=== PATIENT | male | born 1990 | race Caucasian/White ===

== ENCOUNTER 2017-03-27 13:10 | Inpatient (IN) | payer OTHER ==
--- NOTE | 2017-03-27 17:12 | HP ---
Screened but not Admitted - Documentation of Visit Screened but not Admitted: Yes Patient Does Not Meet Criteria for Admission: Yes Alternative Treatment/Care Home Info Provided: Yes Additional Information/Explanation: referred to gayle gonzalez
[2017-03-27 21:20] VITALS: BMI 27.3
--- NOTE | 2017-03-27 21:23 | HP ---
COWS - Scale Resting Pulse: 0= DC 80 or Below Sweatin=Flushed/Facial Moisture Restless Observation: 1= Difficult to Sit Still Pupil Size: 1= Pupils >than Normal Bone or Joint Aches: 2= Severe Diffuse Aches Runny Nose/ Eye Tearin= Nasal Congestion GI Upset > 30mins: 3= Vomiting/Diarrhea Tremor Observation: 1= Tremor [place], Not Seen Yawning Observation: 1= 1-2x During Session Anxiety or Irritability: 1=Feels Anxious/Irritable Goose Flesh Skin: 3=Piloerection COWS Score: 16 CIWA Score - CIWA Score Nausea/Vomitin-Mild Nausea/No Vomiting Muscle Tremors: 3 Anxiety: 3 Agitation: 2 Paroxysmal Sweats: 2 Orientation: 0-Oriented Tacttile Disturbances: 0-None Auditory Disturbances: 0-None Visual Disturbances: 1-Very Mild Sensitivity Headache: 1-Very Mild CIWA-Ar Total Score: 13 Admission ROS BHS - HPI Chief Complaint: WITHDRAWAL SYMPTOMS Allergies/Adverse Reactions: Allergies Allergy/AdvReac Type Severity Reaction Status Date / Time No Known Allergies Allergy Verified 08/06/16 12:36 History of Present Illness: 26 Y.O. MAN WITH AN EXTENSIVE HISTORY OF HEROIN AND XANAX DEPENDENCE IS HERE SEEKING DETOX. HE COMPLETED DETOX HERE IN 08/03 AND WENT TO REHAB AT ANOTHER FACILITY BUT REPORTS HE WAS ADMINISTRATIVELY DISCHARGED. HE STATES HAVING A TWO YEAR PERIOD OF BEING CLEAN. Exam Limitations: No Limitations - Ebola screening Have you traveled outside of the country in the last 21 days: No Have you had contact with anyone from an Ebola affected area: No Have you been sick,other than usual withdrawal symptoms: No Do you have a fever: No - Review of Systems Constitutional: Chills, Loss of Appetite, Changes in sleep EENT: reports: Nose Congestion Respiratory: reports: Cough Cardiac: reports: No Symptoms Reported GI: reports: Diarrhea, Poor Appetite, Vomiting : reports: Other (HESITANCY) Musculoskeletal: reports: Back Pain, Joint Pain, Neck Pain Integumentary: reports: Other (B/L TRACK [place]) Neuro: reports: Tremors Endocrine: reports: No Symptoms Reported Hematology: reports: No Symptoms Reported Psychiatric: reports: Orientated x3, Depressed, other (INSOMNIA) Other Systems: Reviewed and Negative Patient History - Patient Medical History Hx Anemia: No Hx Asthma: No Hx Chronic Obstructive Pulmonary Disease (COPD): No Hx Cancer: No Hx Cardiac Disorders: No Hx Congestive Heart Failure: No Hx Hypertension: No Hx Hypercholesterolemia: No Hx Pacemaker: No HX Cerebrovascular Accident: No Hx Seizures: No Hx Diabetes: No Hx Gastrointestinal Disorders: No Hx Liver Disease: No Hx Genitourinary Disorders: No Hx Sexually Transmitted Disorders: No Hx Renal Disease (ESRD): No Hx Thyroid Disease: No Hx Human Immunodeficiency Virus (HIV): No (negative) Hx Hepatitis C: No Hx Depression: Yes (& INSOMNIA ) Hx Suicide Attempt: No Hx Bipolar Disorder: No Hx Schizophrenia: No - Patient Surgical History Past Surgical History: No Hx Neurologic Surgery: No Hx Cataract Extraction: No Hx Cardiac Surgery: No Hx Lung Surgery: No Hx Breast Surgery: No Hx Breast Biopsy: No Hx Abdominal Surgery: No Hx Appendectomy: No Hx Cholecystectomy: No Hx Genitourinary Surgery: No Hx Section: No Hx Orthopedic Surgery: No Anesthesia Reaction: No - PPD History Previous Implant?: Yes Documented Results: Negative w/o proof PPD to be Administered?: Yes - Reproductive History Patient is a Female of Child Bearing Age (11 -55 yrs old): No - Smoking Cessation Smoking history: Current every day smoker Have you smoked in the past 12 months: Yes Aproximately how many cigarettes per day: 20 Hx Chewing Tobacco Use: No Initiated information on smoking cessation: Yes 'Breaking Loose' booklet given: 03/27/17 - Substance & Tx. History Hx Alcohol Use: Yes Hx Substance Use: Yes Substance Use Type: Heroin, Tranquilizers Hx Substance Use Treatment: Yes (DETOX AT [facility] (07/2016) + REHAB AT [facility] (2016) ) - Substances Abused Heroin Route: Injection Frequency: Daily Amount used: 1 BUNDLE Age of first use: 20 Date of Last Use: 03/27/17 Alprazolam (Xanax) Route: Oral Frequency: 3-6 times per week Amount used: 2-3 STICKS Age of first use: 16 Date of Last Use: 03/25/17 Family Disease History - Family Disease History Family Disease History: Diabetes: Grandparent, Heart Disease: Grandparent, CA: Grandparent, Respiratory: Mother Admission Physical Exam BHS - Vital Signs Vital Signs: Vital Signs - 24 hr 03/27/17 21:18 Temperature 95.8 F L Pulse Rate 80 Respiratory 18 Rate Blood Pressure 104/64 - Physical General Appearance: Yes: No Apparent Distress, Nourished, Appropriately Dressed , Anxious HEENTM: Yes: Normal ENT Inspection, Normocephalic, Normal Voice, SCOTTIE Respiratory: Yes: Chest Non-Tender, Lungs Clear, Normal Breath Sounds, No Respiratory Distress, No Accessory Muscle Use Neck: Yes: No masses,lesions,Nodules, Trachea in good position Cardiology: Yes: Regular Rhythm, Regular Rate Abdominal: Yes: Flat, Soft Genitourinary: Yes: Hesitency Back: Yes: Normal Inspection Musculoskeletal: Yes: Gait Steady, Pelvis Stable Extremities: Yes: Normal Inspection, Normal Range of Motion, Non-Tender, Tremors Neurological: Yes: parachute repairer II-XII NML intact, Fully Oriented, Alert, Normal Mood/ Affect, Normal Response Integumentary: Yes: Track [place] Lymphatic: Yes: Within Normal Limits - Diagnostic (1) Opioid dependence with withdrawal Current Visit: Yes Status: Chronic (2) Sedative, hypnotic or anxiolytic dependence with withdrawal, uncomplicated Current Visit: Yes Status: Chronic (3) Nicotine dependence Current Visit: Yes Status: Chronic Qualifiers: Nicotine product type: cigarettes Substance use status: uncomplicated Qualified Code(s): F17.210 - Nicotine dependence, cigarettes, uncomplicated Cleared for Admission [facility] - Detox or Rehab [facility] Level of Care: Medically Managed Detox Regimen/Protocol: Methadone/Valium S Breath Alcohol Content Breath Alcohol Content: 0 Urine Drug Screen - Results Drug Screen Negative: No Urine Drug Screen Results: THC-Marijuana, ALYCIA-Cocaine, OPI-Opiates, TCA- Tricyclic Antidepress
[2017-03-27] MEDS ORDERED: NICOTINE POLACRILEX 2 MG GUM BUC PRN (21:42)
[2017-03-27] MEDS ORDERED: MENTHOL/PHENOL 1 EACH UD MM PRN (21:42)
[2017-03-27] MEDS ORDERED: LOPERAMIDE HCL 2 MG CAPSULE PO PRN (21:42)
[2017-03-27] MEDS ORDERED: IBUPROFEN 400 MG TABLET (FP) PO PRN (21:42)
[2017-03-27] MEDS ORDERED: hydrOXYzine PAMOATE 50 MG CAPSULE (FP) PO PRN (21:42)
[2017-03-27] MEDS ORDERED: ACETAMINOPHEN 325 MG TABLET (FP) PO PRN (21:42)
[2017-03-27] MEDS ORDERED: diazePAM 5 MG TABLET PO PRN (21:42)
[2017-03-27] MEDS ORDERED: METHADONE HCL 10 MG TABLET (FOR DETOX USE ONLY) PO ONE ×4 (21:42→23:52)
[2017-03-27] MEDS ORDERED: diazePAM 5 MG TABLET PO ONE (21:42)
[2017-03-27] MEDS ORDERED: MAGNESIUM CITRATE 300 ML BOTTLE PO PRN (21:42)
[2017-03-27] MEDS ORDERED: guaiFENesin/D-METHORPHAN HB 10 ML UNIT-DOSE CUPS PO PRN (21:42)
[2017-03-27] MEDS ORDERED: MAGNESIUM HYDROX 2400MG/30ML ORAL SUSPENSION 30 ML CUP PO PRN (21:42)
[2017-03-27] MEDS ORDERED: P-EPHED 60MG/TRIPROLIDI 2.5MG TABLET PO PRN (21:42)
[2017-03-27] MEDS ORDERED: diazePAM 5 MG TABLET PO SCH (22:00)
[2017-03-27 22:52] LABS: URINE APPEARANCE CLEAR; URINE BILIRUBIN NEGATIVE (NEGATIVE); URINE BLOOD NEGATIVE (NEGATIVE); URINE GLUCOSE (UA) NEGATIVE (NEGATIVE); URINE KETONE TRACE (NEGATIVE); URINE LEUK ESTERASE NEGATIVE (NEGATIVE); URINE NITRITE NEGATIVE (NEGATIVE); URINE UROBILINOGEN NEGATIVE E.U./dl (0.2-1.0)
[2017-03-27 22:54] LABS: URINE COLOR YELLOW; URINE PROTEIN 1+ (NEGATIVE)
[2017-03-27 23:11] LABS: CALCIUM OXALATE CRYSTALS FEW /hpf (NONE SEEN); URINE HYALINE CAST 2 /lpf; URINE MUCUS MANY; URINE RBC 2 /hpf (0-3); URINE WBC 2 /hpf (3-5)
[2017-03-27] MEDS: THIAMINE HCL 100 MG TABLET (FP) PO SCH (23:52)
[2017-03-28] MEDS: diazePAM 5 MG TABLET PO PRN ×5 (00:04→23:25)
[2017-03-28] MEDS: MAG HYDROX/AL HYDROX/SIMETH 30 ML UNIT-DOSE CUP PO PRN (06:13)
[2017-03-28] MEDS ORDERED: METHADONE HCL 10 MG TABLET (FOR DETOX USE ONLY) PO ONE (10:00)
[2017-03-28] MEDS ORDERED: METHADONE HCL 10 MG TABLET (FOR DETOX USE ONLY) PO SCH (10:00)
[2017-03-28 10:05] LABS: MCH 29.5 pg (25.7-33.7); MCHC 33.5 g/dl (32.0-35.9); MEAN PLT VOLUME 8.6 fl (7.5-11.1); PLATELET COUNT 131 K/MM3 (134-434); RDW 14.2 % (11.9-15.9); WHITE BLOOD COUNT 5.6 K/mm3 (4.0-10.0)
[2017-03-28 10:09] LABS: ALBUMIN 3.5 g/dl (3.4-5.0); ALK PHOS 76 U/L (45-117); ANION GAP 7 (8-16); BILIRUBIN,TOTAL 0.5 mg/dL (0.2-1.0); CALCIUM 8.4 mg/dL (8.5-10.1); CO2 31 mmol/L (21-32); CREATININE 1.1 mg/dL (0.7-1.3); GLUCOSE,RANDOM 54 mg/dL (74-106); SGOT/AST 16 U/L (15-37); SGPT/ALT 13 U/L (12-78); TOT PROT 6.4 g/dl (6.4-8.2)
[2017-03-28] MEDS: NICOTINE 21 MG/24 HOURS TOPICAL PATCH TD SCH (10:47)
[2017-03-28] MEDS: PRENATAL VITAMINS W/ FOLIC ACID TABLET (FP) PO SCH (10:47)
--- NOTE | 2017-03-28 13:55 | CONSULT ---
[facility] Psychiatric Consult - Data Date of interview: 03/28/17 Admission source: [facility] Identifying data: Readmission to [facility] for this 26 y/o male seeking detox treatment for heroin and benzodiazepine dependence.Patient is single without children,domiciled,unemployed and supported on food stamps. Substance Abuse History: - Smoking Cessation. Smoking history: Current every day smoker. Have you smoked in the past 12 months: Yes. Aproximately how many cigarettes per day: 20. Hx Chewing Tobacco Use: No. Initiated information on smoking cessation: Yes. 'Breaking Loose' booklet given: 03/27/17. - Substance & Tx. History. Hx Alcohol Use: Yes. Hx Substance Use: Yes. Substance Use Type : Heroin, Tranquilizers. Hx Substance Use Treatment: Yes (DETOX AT [facility] (2015) + REHAB AT [facility] (12/2016) ). - Substances Abused. Heroin. Route: Injection. Frequency: Daily. Amount used: 1 BUNDLE. Age of first use: 20. Date of Last Use: 03/27/17. Alprazolam (Xanax). Route: Oral. Frequency: 3- 6 times per week. Amount used: 2-3 STICKS. Age of first use: 16. Date of Last Use: 03/25/17. Confirmed by patient. Medical History: No report of medical problems. Psychiatric History: Patient denies. Physical/Sexual Abuse/Trauma History: Patient denies. Additional Comment: Urine Drug Screen Results: THC-Marijuana, ALYCIA-Cocaine, OPI- Opiates, TCA-Tricyclic Antidepressant.Noted. Mental Status Exam - Mental Status Exam Alert and Oriented to: Time, Place, Person Cognitive Function: Good Patient Appearance: Unkempt, Disheveled Mood: Nervous, Withdrawn, Anxious Affect: Mood Congruent Patient Behavior: Sedated (light sedation), Fatigued, Cooperative (superficially ) Speech Pattern: Delayed, Slurred Voice Loudness: Moderately Soft/Quiet Thought Process: Goal Oriented (conversant) Hallucinations: Denies Suicidal Ideation: Denies Homicidal Ideation: Denies Insight/Judgement: Poor Sleep: Well Appetite: Good Muscle strength/Tone: Normal Gait/Station: Normal Psychiatric Findings - Problem List ([place] 1, 2,3) (1) Opioid dependence with withdrawal Current Visit: Yes Status: Acute (2) Sedative, hypnotic or anxiolytic dependence with withdrawal, uncomplicated Current Visit: Yes Status: Acute (3) Alcohol dependence with uncomplicated withdrawal Current Visit: Yes Status: Acute (4) Cocaine dependence, uncomplicated Current Visit: Yes Status: Acute (5) Cannabis dependence Current Visit: Yes Status: Acute (6) Nicotine dependence Current Visit: Yes Status: Chronic Qualifiers: Nicotine product type: cigarettes Substance use status: uncomplicated Qualified Code(s): F17.210 - Nicotine dependence, cigarettes, uncomplicated (7) Drug-induced mood disorder Current Visit: No Status: Suspected - Initial Treatment Plan Initial Treatment Plan: Psychoeducation.Detoxification.Detoxification.
--- NOTE | 2017-03-28 15:45 | EKG ---
Test Reason : Blood Pressure : / mmHG Vent. Rate : 068 BPM Atrial Rate : 068 BPM P-R Int : 144 ms QRS Dur : 094 ms QT Int : 384 ms P-R-T Axes : 053 078 068 degrees QTc Int : 408 ms NORMAL SINUS RHYTHM NORMAL ECG NO PREVIOUS ECGS AVAILABLE Confirmed by MELANI YANG, SUE ([id number]) on 03/28/2017 3:45:13 PM Referred By: Confirmed By:SUE POLO MD
--- NOTE | 2017-03-28 19:16 | PN ---
[facility] CIWA - CIWA Score Nausea/Vomitin-No Nausea/No Vomiting Muscle Tremors: 4-Moderate,w/Arms Extend Anxiety: 4-Mod. Anxious/Guarded Agitation: 2 Paroxysmal Sweats: 2 Orientation: 0-Oriented Tacttile Disturbances: 1-Very Mild Itch/Numbness Auditory Disturbances: 1-Very Mild Visual Disturbances: 3-Moderate Sensitivity Headache: 0-None Present CIWA-Ar Total Score: 17 [facility] Progress Note (SOAP) Subjective: Tremors, Sweating, Body Aches, Diarrhea. Objective: PT. A & O X 3, OBSERVED AMBULATING ON UNIT. NO ACUTE DISTRESS. 03/28/17 19:13 Vital Signs Temperature 97.2 F L 03/28/17 17:41 Pulse Rate 84 03/28/17 17:41 Respiratory Rate 18 03/28/17 17:41 Blood Pressure 106/62 03/28/17 17:41 O2 Sat by Pulse Oximetry (%) Laboratory Tests 03/27/17 03/28/17 03/28/17 22:20 08:00 08:00 WBC 5.6 D RBC 4.47 Hgb 13.2 Hct 39.4 MCV 88.0 MCHC 33.5 RDW 14.2 Plt Count 131 L MPV 8.6 Sodium 141 Potassium 3.8 Chloride 103 Carbon Dioxide 31 D Anion Gap 7 L BUN 8 D Creatinine 1.1 Creat Clearance w eGFR > 60 Random Glucose 54 L D Calcium 8.4 L Total Bilirubin 0.5 AST 16 D ALT 13 D Alkaline Phosphatase 76 D Total Protein 6.4 D Albumin 3.5 Urine Color Yellow Urine Appearance Clear Urine pH 5.0 Ur Specific [place] >= 1.030 H Urine Protein 1+ H Urine Glucose (UA) Negative Urine Ketones Trace H Urine Blood Negative Urine Nitrite Negative Urine Bilirubin Negative Urine Urobilinogen Negative Ur Leukocyte Esterase Negative Urine RBC 2 Urine WBC 2 Ur Epithelial Cells Rare Calcium Oxalate Crystal Few Hyaline Casts 2 Urine Mucus Many RPR Titer 03/28/17 08:00 WBC RBC Hgb Hct MCV MCHC RDW Plt Count MPV Sodium Potassium Chloride Carbon Dioxide Anion Gap BUN Creatinine Creat Clearance w eGFR Random Glucose Calcium Total Bilirubin AST ALT Alkaline Phosphatase Total Protein Albumin Urine Color Urine Appearance Urine pH Ur Specific [place] Urine Protein Urine Glucose (UA) Urine Ketones Urine Blood Urine Nitrite Urine Bilirubin Urine Urobilinogen Ur Leukocyte Esterase Urine RBC Urine WBC Ur Epithelial Cells Calcium Oxalate Crystal Hyaline Casts Urine Mucus RPR Titer Nonreactive LABS NOTED. Assessment: 03/28/17 19:15 WITHDRAWAL SYMPTOMS. Plan: CONTINUE DETOX.
[2017-03-28] MEDS: THIAMINE HCL 100 MG TABLET (FP) PO SCH (22:14)
[2017-03-28] MEDS: diphenhydrAMINE HCL 50 MG CAPSULE PO PRN (22:14)
[2017-03-29] MEDS: diazePAM 5 MG TABLET PO PRN ×5 (03:31→22:11)
[2017-03-29] MEDS ORDERED: METHADONE HCL 5 MG TABLET (FOR DETOX USE ONLY) PO SCH (10:00)
[2017-03-29] MEDS ORDERED: METHADONE HCL 5 MG TABLET (FOR DETOX USE ONLY) PO ONE (10:00)
[2017-03-29] MEDS ORDERED: diazePAM 5 MG TABLET PO SCH (10:00)
[2017-03-29] MEDS: NICOTINE 21 MG/24 HOURS TOPICAL PATCH TD SCH (10:14)
[2017-03-29] MEDS: PRENATAL VITAMINS W/ FOLIC ACID TABLET (FP) PO SCH (10:14)
--- NOTE | 2017-03-29 15:16 | PN ---
S COWS - Scale Resting Pulse: 1= AL 81-100 Sweatin= Chills/Flushing Restless Observation: 3= Extraneous Movement Pupil Size: 0= Normal to Room Light Bone or Joint Aches: 2= Severe Diffuse Aches Runny Nose/ Eye Tearin= Runny Nose/Eyes GI Upset > 30mins: 2= Nausea/Diarrhea Tremor Observation of Outstretched Hands: 2= Slight Tremor Visible Yawning Observation: 1= 1-2x During Session Anxiety or Irritability: 2=Irritable/Anxious Goose Flesh Skin: 0=Smooth Skin COWS Score: 16 S Progress Note (SOAP) Subjective: Interrupted sleep, sweating, anxious Objective: 03/29/17 15:13 Last Vital Signs Temp Pulse Resp BP Pulse Ox 97.7 F 88 20 128/79 03/29/17 13:15 03/29/17 13:15 03/29/17 13:15 03/29/17 13:15 Laboratory Tests 03/27/17 03/28/17 03/28/17 22:20 08:00 08:00 WBC 5.6 D RBC 4.47 Hgb 13.2 Hct 39.4 MCV 88.0 MCHC 33.5 RDW 14.2 Plt Count 131 L MPV 8.6 Sodium 141 Potassium 3.8 Chloride 103 Carbon Dioxide 31 D Anion Gap 7 L BUN 8 D Creatinine 1.1 Creat Clearance w eGFR > 60 Random Glucose 54 L D Calcium 8.4 L Total Bilirubin 0.5 AST 16 D ALT 13 D Alkaline Phosphatase 76 D Total Protein 6.4 D Albumin 3.5 Urine Color Yellow Urine Appearance Clear Urine pH 5.0 Ur Specific [place] >= 1.030 H Urine Protein 1+ H Urine Glucose (UA) Negative Urine Ketones Trace H Urine Blood Negative Urine Nitrite Negative Urine Bilirubin Negative Urine Urobilinogen Negative Ur Leukocyte Esterase Negative Urine RBC 2 Urine WBC 2 Ur Epithelial Cells Rare Calcium Oxalate Crystal Few Hyaline Casts 2 Urine Mucus Many RPR Titer 03/28/17 08:00 WBC RBC Hgb Hct MCV MCHC RDW Plt Count MPV Sodium Potassium Chloride Carbon Dioxide Anion Gap BUN Creatinine Creat Clearance w eGFR Random Glucose Calcium Total Bilirubin AST ALT Alkaline Phosphatase Total Protein Albumin Urine Color Urine Appearance Urine pH Ur Specific [place] Urine Protein Urine Glucose (UA) Urine Ketones Urine Blood Urine Nitrite Urine Bilirubin Urine Urobilinogen Ur Leukocyte Esterase Urine RBC Urine WBC Ur Epithelial Cells Calcium Oxalate Crystal Hyaline Casts Urine Mucus RPR Titer Nonreactive Labs noted: UA 1+ protein Assessment: 03/29/17 15:14 Withdrawal symptoms Noted with proteinuria Plan: Continue detox Proteinuria: encouraged to drink lots of water, repeat UA
[2017-03-29] MEDS: MAG HYDROX/AL HYDROX/SIMETH 30 ML UNIT-DOSE CUP PO PRN (22:11)
[2017-03-29] MEDS: diphenhydrAMINE HCL 50 MG CAPSULE PO PRN (22:11)
[2017-03-29] MEDS: THIAMINE HCL 100 MG TABLET (FP) PO SCH (22:11)
[2017-03-30] MEDS: diazePAM 5 MG TABLET PO PRN ×6 (02:04→22:40)
[2017-03-30] MEDS ORDERED: METHADONE HCL 5 MG TABLET (FOR DETOX USE ONLY) PO ONE (10:00)
[2017-03-30] MEDS: PRENATAL VITAMINS W/ FOLIC ACID TABLET (FP) PO SCH (10:13)
[2017-03-30] MEDS: NICOTINE 21 MG/24 HOURS TOPICAL PATCH TD SCH (10:13)
--- NOTE | 2017-03-30 14:03 | PN ---
[facility] Progress Note (SOAP) Subjective: Sweating,interrupted sleep,restless. Objective: 03/30/17 14:02 Vital Signs - 8 hr 03/30/17 03/30/17 03/30/17 06:21 09:41 13:40 Temperature 97.3 F L 97.5 F L 97.8 F Pulse Rate 92 H 93 H 92 H Respiratory 18 20 20 Rate Blood Pressure 109/71 103/70 108/72 Laboratory Last Values WBC 5.6 K/mm3 (4.0-10.0) D 03/28/17 08:00 RBC 4.47 M/mm3 (4.00-5.60) 03/28/17 08:00 Hgb 13.2 GM/dL (11.7-16.9) 03/28/17 08:00 Hct 39.4 % (35.4-49) 03/28/17 08:00 MCV 88.0 fl (80-96) 03/28/17 08:00 MCHC 33.5 g/dl (32.0-35.9) 03/28/17 08:00 RDW 14.2 % (11.9-15.9) 03/28/17 08:00 Plt Count 131 K/MM3 (134-434) L 03/28/17 08:00 MPV 8.6 fl (7.5-11.1) 03/28/17 08:00 Sodium 141 mmol/L (136-145) 03/28/17 08:00 Potassium 3.8 mmol/L (3.5-5.1) 03/28/17 08:00 Chloride 103 mmol/L (98-107) 03/28/17 08:00 Carbon Dioxide 31 mmol/L (21-32) D 03/28/17 08:00 Anion Gap 7 (8-16) L 03/28/17 08:00 BUN 8 mg/dL (7-18) D 03/28/17 08:00 Creatinine 1.1 mg/dL (0.7-1.3) 03/28/17 08:00 Creat Clearance w eGFR > 60 (>60) 03/28/17 08:00 Random Glucose 54 mg/dL (74-106) L D 03/28/17 08:00 Calcium 8.4 mg/dL (8.5-10.1) L 03/28/17 08:00 Total Bilirubin 0.5 mg/dL (0.2-1.0) 03/28/17 08:00 AST 16 U/L (15-37) D 03/28/17 08:00 ALT 13 U/L (12-78) D 03/28/17 08:00 Alkaline Phosphatase 76 U/L (45-117) D 03/28/17 08:00 Total Protein 6.4 g/dl (6.4-8.2) D 03/28/17 08:00 Albumin 3.5 g/dl (3.4-5.0) 03/28/17 08:00 Urine Color Yellow 03/27/17 22:20 Urine Appearance Clear 03/27/17 22:20 Urine pH 5.0 (5.0-8.0) 03/27/17 22:20 Ur Specific [place] >= 1.030 (1.005-1.025) H 03/27/17 22:20 Urine Protein 1+ (NEGATIVE) H 03/27/17 22:20 Urine Glucose (UA) Negative (NEGATIVE) 03/27/17 22:20 Urine Ketones Trace (NEGATIVE) H 03/27/17 22:20 Urine Blood Negative (NEGATIVE) 03/27/17 22:20 Urine Nitrite Negative (NEGATIVE) 03/27/17 22:20 Urine Bilirubin Negative (NEGATIVE) 03/27/17 22:20 Urine Urobilinogen Negative E.U./dl (0.2-1.0) 03/27/17 22:20 Ur Leukocyte Esterase Negative (NEGATIVE) 03/27/17 22:20 Urine RBC 2 /hpf (0-3) 03/27/17 22:20 Urine WBC 2 /hpf (3-5) 03/27/17 22:20 Ur Epithelial Cells Rare /hpf (FEW) 03/27/17 22:20 Calcium Oxalate Crystal Few /hpf (NONE SEEN) 03/27/17 22:20 Hyaline Casts 2 /lpf 03/27/17 22:20 Urine Mucus Many 03/27/17 22:20 RPR Titer Nonreactive (NONREACTIVE) 03/28/17 08:00 labs noted Assessment: 03/30/17 14:02 Withdrawal sx. Plan: Continue detox
[2017-03-30 17:31] LABS: URINE APPEARANCE CLEAR; URINE BILIRUBIN NEGATIVE (NEGATIVE); URINE BLOOD NEGATIVE (NEGATIVE); URINE COLOR LTYELLOW; URINE GLUCOSE (UA) NEGATIVE (NEGATIVE); URINE KETONE NEGATIVE (NEGATIVE); URINE LEUK ESTERASE NEGATIVE (NEGATIVE); URINE NITRITE NEGATIVE (NEGATIVE); URINE PROTEIN NEGATIVE (NEGATIVE); URINE UROBILINOGEN NEGATIVE E.U./dl (0.2-1.0)
[2017-03-30] MEDS: THIAMINE HCL 100 MG TABLET (FP) PO SCH (22:18)
[2017-03-30] MEDS: diphenhydrAMINE HCL 50 MG CAPSULE PO PRN (22:19)
[2017-03-31] MEDS ORDERED: METHADONE HCL 10 MG TABLET (FOR DETOX USE ONLY) PO SCH (10:00)
[2017-03-31] MEDS ORDERED: diazePAM 5 MG TABLET PO SCH (10:00)
[2017-03-31] MEDS ORDERED: METHADONE HCL 10 MG TABLET (FOR DETOX USE ONLY) PO ONE (10:00)
[2017-03-31] MEDS: NICOTINE 21 MG/24 HOURS TOPICAL PATCH TD SCH (10:15)
[2017-03-31] MEDS: PRENATAL VITAMINS W/ FOLIC ACID TABLET (FP) PO SCH (10:15)
--- NOTE | 2017-03-31 10:32 | PN ---
[facility] Progress Note (SOAP) Subjective: ANXIETY,SWEATS,INTERMITTENT SLEEP Objective: 03/31/17 10:31 Vital Signs Temperature 97.4 F L 03/31/17 09:28 Pulse Rate 75 03/31/17 09:28 Respiratory Rate 18 03/31/17 09:28 Blood Pressure 103/67 03/31/17 09:28 O2 Sat by Pulse Oximetry (%) Assessment: 03/31/17 10:31 WITHDRAWAL SX Plan: CONTINUE DETOX BENADRYL DIRECTED FOR INSOMNIA
[2017-03-31 18:16] VITALS: BP 102/70; PULSE 100; TEMP 97.7
[2017-04-01] MEDS ORDERED: METHADONE HCL 5 MG TABLET (FOR DETOX USE ONLY) PO ONE (06:00)
[2017-04-01] MEDS ORDERED: METHADONE HCL 5 MG TABLET (FOR DETOX USE ONLY) PO SCH (06:00)
--- NOTE | 2017-04-01 17:25 | DS ---
[facility] Detox Discharge Summary Admission Date: 03/27/17 Discharge Date: 03/31/17 - History Present History: Alcohol Dependence, Cocaine Dependence, Opioid Dependence, Sedative Dependence - Physical Exam Results Vital Signs: Vital Signs Temperature 97.7 F 03/31/17 18:15 Pulse Rate 100 H 03/31/17 18:15 Respiratory Rate 19 03/31/17 18:15 Blood Pressure 102/70 03/31/17 18:15 O2 Sat by Pulse Oximetry (%) Pertinent Admission Physical Exam Findings: withdrawal sx Laboratory Last Values WBC 5.6 K/mm3 (4.0-10.0) D 03/28/17 08:00 RBC 4.47 M/mm3 (4.00-5.60) 03/28/17 08:00 Hgb 13.2 GM/dL (11.7-16.9) 03/28/17 08:00 Hct 39.4 % (35.4-49) 03/28/17 08:00 MCV 88.0 fl (80-96) 03/28/17 08:00 MCHC 33.5 g/dl (32.0-35.9) 03/28/17 08:00 RDW 14.2 % (11.9-15.9) 03/28/17 08:00 Plt Count 131 K/MM3 (134-434) L 03/28/17 08:00 MPV 8.6 fl (7.5-11.1) 03/28/17 08:00 Sodium 141 mmol/L (136-145) 03/28/17 08:00 Potassium 3.8 mmol/L (3.5-5.1) 03/28/17 08:00 Chloride 103 mmol/L (98-107) 03/28/17 08:00 Carbon Dioxide 31 mmol/L (21-32) D 03/28/17 08:00 Anion Gap 7 (8-16) L 03/28/17 08:00 BUN 8 mg/dL (7-18) D 03/28/17 08:00 Creatinine 1.1 mg/dL (0.7-1.3) 03/28/17 08:00 Creat Clearance w eGFR > 60 (>60) 03/28/17 08:00 Random Glucose 54 mg/dL (74-106) L D 03/28/17 08:00 Calcium 8.4 mg/dL (8.5-10.1) L 03/28/17 08:00 Total Bilirubin 0.5 mg/dL (0.2-1.0) 03/28/17 08:00 AST 16 U/L (15-37) D 03/28/17 08:00 ALT 13 U/L (12-78) D 03/28/17 08:00 Alkaline Phosphatase 76 U/L (45-117) D 03/28/17 08:00 Total Protein 6.4 g/dl (6.4-8.2) D 03/28/17 08:00 Albumin 3.5 g/dl (3.4-5.0) 03/28/17 08:00 Urine Color L[place] 03/30/17 15:00 Urine Appearance Clear 03/30/17 15:00 Urine pH 8.0 (5.0-8.0) D 03/30/17 15:00 Ur Specific [place] 1.020 (1.005-1.025) 03/30/17 15:00 Urine Protein Negative (NEGATIVE) 03/30/17 15:00 Urine Glucose (UA) Negative (NEGATIVE) 03/30/17 15:00 Urine Ketones Negative (NEGATIVE) 03/30/17 15:00 Urine Blood Negative (NEGATIVE) 03/30/17 15:00 Urine Nitrite Negative (NEGATIVE) 03/30/17 15:00 Urine Bilirubin Negative (NEGATIVE) 03/30/17 15:00 Urine Urobilinogen Negative E.U./dl (0.2-1.0) 03/30/17 15:00 Ur Leukocyte Esterase Negative (NEGATIVE) 03/30/17 15:00 Urine RBC 2 /hpf (0-3) 03/27/17 22:20 Urine WBC 2 /hpf (3-5) 03/27/17 22:20 Ur Epithelial Cells Rare /hpf (FEW) 03/27/17 22:20 Calcium Oxalate Crystal Few /hpf (NONE SEEN) 03/27/17 22:20 Hyaline Casts 2 /lpf 03/27/17 22:20 Urine Mucus Many 03/27/17 22:20 RPR Titer Nonreactive (NONREACTIVE) 03/28/17 08:00 lab noted - Treatment Hospital Course: Detox Protocol Followed, Responded well - Medication Discharge Medications: Ambulatory Orders Amox-Tr/K Cl [Augmentin 875-125mg Tablet -] 1 tab PO BID@0800,6980 #14 tablet - Diagnosis (1) Alcohol dependence with uncomplicated withdrawal Status: Acute (2) Cocaine dependence, uncomplicated Status: Chronic (3) Opioid dependence with withdrawal Status: Acute (4) Sedative, hypnotic or anxiolytic dependence with withdrawal, uncomplicated Status: Acute (5) Nicotine dependence Status: Acute Qualifiers: Nicotine product type: cigarettes Substance use status: in withdrawal Qualified Code(s): F17.213 - Nicotine dependence, cigarettes, with withdrawal - AMA Did Patient Leave Against Medical Advice: Yes
== END 2017-03-31 18:58 | disposition left against medical advice (07) | DRG 770 ==
LOC: YASAS 13:10 → Y3N 21:52
PROVIDERS: ADMIT Internal Medicine; ATTEND Internal Medicine
PROC: HZ2ZZZZ Detoxification Services for Substance Abuse Treatment (ICD-10-PCS; principal; 2017-03-27)
DX: F11.23 Opioid dependence with withdrawal (principal); F13.230 Sedative, hypnotic or anxiolytic dependence with withdrawal, uncomplicated; F10.230 Alcohol dependence with withdrawal, uncomplicated; F14.20 Cocaine dependence, uncomplicated; F12.20 Cannabis dependence, uncomplicated; F17.210 Nicotine dependence, cigarettes, uncomplicated; F19.24 Other psychoactive substance dependence with psychoactive substance-induced mood disorder; R80.9 Proteinuria, unspecified
CPT/HCPCS: 36415; 80053; 81003; 81015; 85027; 86593; 93005; 93010

== ENCOUNTER 2017-05-28 20:39 | Inpatient (IN) | payer OTHER ==
[2017-05-28 20:57] VITALS: BMI 25.8
--- NOTE | 2017-05-28 21:17 | HP ---
COWS - Scale Resting Pulse: 2= [place] 101-120 Sweatin= Chills/Flushing Restless Observation: 1= Difficult to Sit Still Pupil Size: 1= Pupils >than Normal Bone or Joint Aches: 2= Severe Diffuse Aches Runny Nose/ Eye Tearin= Runny Nose/Eyes GI Upset > 30mins: 2= Nausea/Diarrhea Tremor Observation: 1= Tremor [place], Not Seen Yawning Observation: 1= 1-2x During Session Anxiety or Irritability: 2=Irritable/Anxious Goose Flesh Skin: 3=Piloerection COWS Score: 18 CIWA Score - CIWA Score Nausea/Vomitin-Mild Nausea/No Vomiting Muscle Tremors: 2 Anxiety: 3 Agitation: 2 Paroxysmal Sweats: 1-Minimal Palms Moist Orientation: 1-Uncertain about Date Tacttile Disturbances: 0-None Auditory Disturbances: 0-None Visual Disturbances: 2-Mild Sensitivity Headache: 0-None Present CIWA-Ar Total Score: 12 Admission ROS BHS - HPI Chief Complaint: Withdrawal symptoms Allergies/Adverse Reactions: Allergies Allergy/AdvReac Type Severity Reaction Status Date / Time No Known Allergies Allergy Verified 08/06/16 12:36 History of Present Illness: 26 y.o. man with a history of heroin and Xanax dependence is here seeking detox. He was last here for detox in 03/2017. Reports his longest time clean has been 2 years. Exam Limitations: No Limitations - Ebola screening Have you traveled outside of the country in the last 21 days: No Have you had contact with anyone from an Ebola affected area: No Have you been sick,other than usual withdrawal symptoms: No Do you have a fever: No - Review of Systems Constitutional: Night Sweats, Changes in sleep, Weakness EENT: reports: No Symptoms Reported Respiratory: reports: No Symptoms reported Cardiac: reports: Lightheadedness GI: reports: Nausea : reports: No Symptoms Reported Musculoskeletal: reports: Back Pain Integumentary: reports: No Symptoms Reported Neuro: reports: Headache Endocrine: reports: No Symptoms Reported Hematology: reports: No Symptoms Reported Psychiatric: reports: Orientated x3 Other Systems: Reviewed and Negative Patient History - Patient Medical History Hx Anemia: No Hx Asthma: No Hx Chronic Obstructive Pulmonary Disease (COPD): No Hx Cancer: No Hx Cardiac Disorders: No Hx Congestive Heart Failure: No Hx Hypertension: No Hx Hypercholesterolemia: No Hx Pacemaker: No HX Cerebrovascular Accident: No Hx Seizures: No Hx Diabetes: No Hx Gastrointestinal Disorders: No Hx Liver Disease: No Hx Genitourinary Disorders: No Hx Sexually Transmitted Disorders: No Hx Renal Disease (ESRD): No Hx Thyroid Disease: No Hx Human Immunodeficiency Virus (HIV): No (negative) Hx Hepatitis C: No Hx Depression: Yes (& INSOMNIA ) Hx Suicide Attempt: No Hx Bipolar Disorder: No Hx Schizophrenia: No - Patient Surgical History Past Surgical History: No Hx Neurologic Surgery: No Hx Cataract Extraction: No Hx Cardiac Surgery: No Hx Lung Surgery: No Hx Breast Surgery: No Hx Breast Biopsy: No Hx Abdominal Surgery: No Hx Appendectomy: No Hx Cholecystectomy: No Hx Genitourinary Surgery: No Hx Section: No Hx Orthopedic Surgery: No Anesthesia Reaction: No - PPD History Previous Implant?: Yes Documented Results: Negative w/proof Date: 03/29/17 Results: 0 PPD to be Administered?: No - Reproductive History Patient is a Female of Child Bearing Age (11 -55 yrs old): No - Smoking Cessation Smoking history: Current every day smoker Have you smoked in the past 12 months: Yes Aproximately how many cigarettes per day: 20 Hx Chewing Tobacco Use: No Initiated information on smoking cessation: Yes 'Breaking Loose' booklet given: 05/28/17 - Substance & Tx. History Hx Alcohol Use: No Hx Substance Use: Yes Substance Use Type: Heroin - Substances Abused Heroin Route: Injection Frequency: Daily Amount used: 10 bags Age of first use: 19 Date of Last Use: 05/28/17 Alprazolam (Xanax) Route: Oral Frequency: Daily Amount used: 10mg Age of first use: 16 Date of Last Use: 05/27/17 Family Disease History - Family Disease History Family Disease History: Diabetes: Grandparent, Heart Disease: Grandparent, CA: Grandparent, Respiratory: Mother Admission Physical Exam BHS - Vital Signs Vital Signs: Vital Signs - 24 hr 05/28/17 20:53 Temperature 97.9 F Pulse Rate 107 H Respiratory 18 Rate Blood Pressure 122/75 - Physical General Appearance: Yes: Anxious HEENTM: Yes: Hearing grossly Normal, Normocephalic, Normal Voice Respiratory: Yes: Chest Non-Tender, Lungs Clear, Normal Breath Sounds, No Respiratory Distress, No Accessory Muscle Use Neck: Yes: No masses,lesions,Nodules, Trachea in good position Breast: Yes: Breast Exam Deferred Cardiology: Yes: Regular Rhythm, Tachycardia Abdominal: Yes: Non Tender, Flat, Soft Genitourinary: Yes: Other (No complaints reported) Musculoskeletal: Yes: Back pain Extremities: Yes: Normal Inspection, Normal Range of Motion, Non-Tender 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, Fully Oriented, Alert, Normal Mood/ Affect, Normal Response Lymphatic: Yes: Within Normal Limits - Diagnostic (1) Nicotine dependence Current Visit: Yes Status: Chronic Qualifiers: Nicotine product type: cigarettes Substance use status: in withdrawal Qualified Code(s): F17.213 - Nicotine dependence, cigarettes, with withdrawal (2) Opioid dependence with withdrawal Current Visit: Yes Status: Chronic (3) Sedative, hypnotic or anxiolytic dependence with withdrawal, uncomplicated Current Visit: Yes Status: Chronic Cleared for Admission [facility] - Detox or Rehab [facility] Level of Care: Medically Managed Detox Regimen/Protocol: Methadone/Valium [facility] Breath Alcohol Content Breath Alcohol Content: 0 Urine Drug Screen - Results Drug Screen Negative: No Urine Drug Screen Results: ALYCIA-Cocaine, OPI-Opiates, BZO-Benzodiazepines, MTD- Methadone
[2017-05-28] MEDS ORDERED: P-EPHED 60MG/TRIPROLIDI 2.5MG TABLET PO PRN (21:26)
[2017-05-28] MEDS ORDERED: MAGNESIUM HYDROX 2400MG/30ML ORAL SUSPENSION 30 ML CUP PO PRN (21:26)
[2017-05-28] MEDS ORDERED: LOPERAMIDE HCL 2 MG CAPSULE PO PRN (21:26)
[2017-05-28] MEDS ORDERED: MAGNESIUM CITRATE 300 ML BOTTLE PO PRN (21:26)
[2017-05-28] MEDS ORDERED: guaiFENesin/D-METHORPHAN HB 10 ML UNIT-DOSE CUPS PO PRN (21:26)
[2017-05-28] MEDS ORDERED: diazePAM 5 MG TABLET PO ONE (21:26)
[2017-05-28] MEDS ORDERED: hydrOXYzine PAMOATE 50 MG CAPSULE (FP) PO PRN (21:26)
[2017-05-28] MEDS ORDERED: NICOTINE POLACRILEX 2 MG GUM BUC PRN (21:26)
[2017-05-28] MEDS ORDERED: MAG HYDROX/AL HYDROX/SIMETH 30 ML UNIT-DOSE CUP PO PRN (21:26)
[2017-05-28] MEDS ORDERED: IBUPROFEN 400 MG TABLET (FP) PO PRN (21:26)
[2017-05-28] MEDS ORDERED: ACETAMINOPHEN 325 MG TABLET (FP) PO PRN (21:26)
[2017-05-28] MEDS ORDERED: MENTHOL/PHENOL 1 EACH UD MM PRN (21:26)
[2017-05-28] MEDS ORDERED: METHADONE HCL 10 MG TABLET (FOR DETOX USE ONLY) PO ONE ×2 (21:26→23:00)
[2017-05-28] MEDS: THIAMINE HCL 100 MG TABLET (FP) PO SCH (21:48)
[2017-05-28] MEDS: diphenhydrAMINE HCL 50 MG CAPSULE PO PRN (21:48)
[2017-05-28] MEDS: diazePAM 5 MG TABLET PO SCH (21:49)
[2017-05-28 23:46] LABS: URINE APPEARANCE SLCLOUDY; URINE BILIRUBIN NEGATIVE (NEGATIVE); URINE BLOOD NEGATIVE (NEGATIVE); URINE COLOR DKYELLOW; URINE GLUCOSE (UA) NEGATIVE (NEGATIVE); URINE KETONE NEGATIVE (NEGATIVE); URINE LEUK ESTERASE NEGATIVE (NEGATIVE); URINE NITRITE NEGATIVE (NEGATIVE); URINE PROTEIN NEGATIVE (NEGATIVE); URINE UROBILINOGEN NEGATIVE mg/dL (0.2-1.0)
[2017-05-29] MEDS: diazePAM 5 MG TABLET PO SCH ×3 (05:19→22:03)
--- NOTE | 2017-05-29 09:35 | EKG ---
Test Reason : Blood Pressure : / mmHG Vent. Rate : 084 BPM Atrial Rate : 084 BPM P-R Int : 152 ms QRS Dur : 096 ms QT Int : 354 ms P-R-T Axes : 105 105 114 degrees QTc Int : 418 ms SUSPECT ARM LEAD REVERSAL, INTERPRETATION ASSUMES NO REVERSAL NORMAL SINUS RHYTHM RIGHTWARD AXIS NON-SPECIFIC INTRA-VENTRICULAR CONDUCTION DELAY Confirmed by RIKY PENA MD ([id number]) on 05/29/2017 9:35:44 AM Referred By: Confirmed By:RIKY PENA MD
[2017-05-29] MEDS ORDERED: METHADONE HCL 10 MG TABLET (FOR DETOX USE ONLY) PO SCH (10:00)
[2017-05-29 10:05] LABS: ALBUMIN 3.7 g/dl (3.4-5.0); ANION GAP 7 (8-16); CALCIUM 9.1 mg/dL (8.5-10.1); CO2 30 mmol/L (21-32); GLUCOSE,RANDOM 83 mg/dL (74-106); SGOT/AST 13 U/L (15-37); SGPT/ALT 15 U/L (12-78)
[2017-05-29 10:07] LABS: ALK PHOS 71 U/L (45-117); BILIRUBIN,TOTAL 0.5 mg/dL (0.2-1.0); TOT PROT 7.1 g/dl (6.4-8.2)
[2017-05-29 10:12] LABS: MCH 28.8 pg (25.7-33.7); MCHC 33.4 g/dl (32.0-35.9); MEAN CELL VOLUME 86.3 fl (80-96); MEAN PLT VOLUME 7.5 fl (7.5-11.1); PLATELET COUNT 194 K/MM3 (134-434); RDW 14.4 % (11.9-15.9)
--- NOTE | 2017-05-29 10:41 | PN ---
[facility] CIWA - CIWA Score Nausea/Vomitin-Mild Nausea/No Vomiting Muscle Tremors: 4-Moderate,w/Arms Extend Anxiety: 3 Agitation: 4-Moderately Restless Paroxysmal Sweats: 3 Orientation: 0-Oriented Tacttile Disturbances: 0-None Auditory Disturbances: 0-None Visual Disturbances: 0-None Headache: 0-None Present CIWA-Ar Total Score: 15 BHS COWS - Scale Resting Pulse: 0= [place] 80 or Below Sweatin= Chills/Flushing Restless Observation: 1= Difficult to Sit Still Pupil Size: 0= Normal to Room Light Bone or Joint Aches: 2= Severe Diffuse Aches Runny Nose/ Eye Tearin= Nasal Congestion GI Upset > 30mins: 1= Stomach Cramp Tremor Observation of Outstretched Hands: 2= Slight Tremor Visible Yawning Observation: 2= >3x During Session Anxiety or Irritability: 2=Irritable/Anxious Goose Flesh Skin: 3=Piloerection COWS Score: 15 [facility] Progress Note (SOAP) Subjective: sweats shakes chills agitation anxiety interrupted sleep Objective: 05/29/17 10:37 Vital Signs Temperature 98.1 F 05/29/17 10:21 Pulse Rate 78 05/29/17 10:21 Respiratory Rate 18 05/29/17 10:21 Blood Pressure 116/71 05/29/17 10:21 O2 Sat by Pulse Oximetry (%) Laboratory Tests 05/28/17 05/29/17 05/29/17 21:55 07:00 07:00 WBC 6.0 RBC 4.52 Hgb 13.0 Hct 39.0 MCV 86.3 MCH 28.8 MCHC 33.4 RDW 14.4 Plt Count 194 D MPV 7.5 D Sodium 139 Potassium 4.1 Chloride 102 Carbon Dioxide 30 Anion Gap 7 L BUN 13 D Creatinine 1.0 Creat Clearance w eGFR > 60 Random Glucose 83 D Calcium 9.1 Total Bilirubin 0.5 AST 13 L ALT 15 Alkaline Phosphatase 71 Total Protein 7.1 Albumin 3.7 Urine Color Dkyellow Urine Appearance Slcloudy Urine pH 6.0 D Ur Specific [place] 1.020 Urine Protein Negative Urine Glucose (UA) Negative Urine Ketones Negative Urine Blood Negative Urine Nitrite Negative Urine Bilirubin Negative Urine Urobilinogen Negative Ur Leukocyte Esterase Negative awake/alert ambulating no acute distress Assessment: 05/29/17 10:37 withdrawal sx Plan: continue detox increase fluids
[2017-05-29] MEDS: diazePAM 5 MG TABLET PO PRN ×2 (10:43→17:02)
[2017-05-29] MEDS: NICOTINE 21 MG/24 HOURS TOPICAL PATCH TD SCH (10:43)
[2017-05-29] MEDS: PRENATAL VITAMINS W/ FOLIC ACID TABLET (FP) PO SCH (10:43)
--- NOTE | 2017-05-29 16:30 | CONSULT ---
[facility] Psychiatric Consult - Data Date of interview: 05/29/17 Admission source: [facility] Identifying data: Another admission to [facility] for this 26 y/o male seeking detox treatment for heroin,xanax,cocaine and benzodiazepine dependence.Patient is single without children,domiciled,unemployed and supported on food stamps. Substance Abuse History: Fully discussed with the patient in this interview.Mr Ashley supports this reports as an accurate reflection of his substance abuse patterns : Smoking Cessation. Smoking history: Current every day smoker. Have you smoked in the past 12 months: Yes. Aproximately how many cigarettes per day: 20. Hx Chewing Tobacco Use: No. Initiated information on smoking cessation: Yes. 'Breaking Loose' booklet given: 05/28/17. - Substance & Tx. History. Hx Alcohol Use: No. Hx Substance Use: Yes. Substance Use Type : Heroin. - Substances Abused. Heroin. Route: Injection. Frequency: Daily. Amount used: 10 bags. Age of first use: 19. Date of Last Use: . Alprazolam (Xanax). Route: Oral. Frequency: Daily. Amount used: 10mg. Age of first use: 16. Date of Last Use: 05/27/17 Medical History: Patient endorses good general health. Psychiatric History: Patient denies. Physical/Sexual Abuse/Trauma History: Patient denies. Additional Comment: Urine Drug Screen Results: ALYCIA-Cocaine, OPI-Opiates, BZO- Benzodiazepines, MTD-Methadone.Noted. Mental Status Exam - Mental Status Exam Alert and Oriented to: Time, Place, Person Cognitive Function: Good Patient Appearance: Well Groomed Mood: Nervous, Withdrawn, Anxious Affect: Mood Congruent Patient Behavior: Fatigued, Appropriate, Cooperative Speech Pattern: Clear Voice Loudness: Normal Thought Process: Intact, Goal Oriented Thought Disorder: Not Present Hallucinations: Denies Suicidal Ideation: Denies Homicidal Ideation: Denies Insight/Judgement: Poor Sleep: Poorly, Difficulty falling asleep Appetite: Good Muscle strength/Tone: Normal Gait/Station: Normal Psychiatric Findings - Problem List ([place] 1, 2,3) (1) Opioid dependence with withdrawal Current Visit: Yes Status: Acute (2) Sedative, hypnotic or anxiolytic dependence with withdrawal, uncomplicated Current Visit: Yes Status: Acute (3) Cocaine dependence, uncomplicated Current Visit: Yes Status: Acute (4) Nicotine dependence Current Visit: Yes Status: Acute Qualifiers: Nicotine product type: cigarettes Substance use status: in withdrawal Qualified Code(s): F17.213 - Nicotine dependence, cigarettes, with withdrawal (5) Drug-induced mood disorder Current Visit: Yes Status: Acute (6) Insomnia Current Visit: Yes Status: Acute - Initial Treatment Plan Initial Treatment Plan: Psychoeducation.Detoxification.Ambien 10 mg po hs.Patient made aware of potential for parasomnias.He agrees with this careplan.Observation.
[2017-05-29] MEDS: THIAMINE HCL 100 MG TABLET (FP) PO SCH (22:03)
[2017-05-29] MEDS: ZOLPIDEM TARTRATE 10 MG TABLET (PARK CARE ONLY) PO PRN (22:03)
[2017-05-30] MEDS: diazePAM 5 MG TABLET PO PRN ×4 (00:31→17:15)
[2017-05-30] MEDS: PRENATAL VITAMINS W/ FOLIC ACID TABLET (FP) PO SCH (10:11)
[2017-05-30] MEDS: diazePAM 5 MG TABLET PO SCH ×2 (10:11→22:14)
[2017-05-30] MEDS: METHADONE HCL 5 MG TABLET (FOR DETOX USE ONLY) PO SCH (10:11)
[2017-05-30] MEDS: NICOTINE 21 MG/24 HOURS TOPICAL PATCH TD SCH (10:12)
--- NOTE | 2017-05-30 13:55 | PN ---
[facility] CIWA - CIWA Score Nausea/Vomitin-Mild Nausea/No Vomiting Muscle Tremors: 3 Anxiety: 4-Mod. Anxious/Guarded Agitation: 3 Paroxysmal Sweats: 3 Orientation: 0-Oriented Tacttile Disturbances: 0-None Auditory Disturbances: 0-None Visual Disturbances: 0-None Headache: 0-None Present CIWA-Ar Total Score: 14 BHS COWS - Scale Resting Pulse: 1= [place] 81-100 Sweatin=Flushed/Facial Moisture Restless Observation: 1= Difficult to Sit Still Pupil Size: 0= Normal to Room Light Bone or Joint Aches: 1= Mild Discomfort Runny Nose/ Eye Tearin= Runny Nose/Eyes GI Upset > 30mins: 2= Nausea/Diarrhea Tremor Observation of Outstretched Hands: 2= Slight Tremor Visible Yawning Observation: 1= 1-2x During Session Anxiety or Irritability: 2=Irritable/Anxious Goose Flesh Skin: 0=Smooth Skin COWS Score: 14 [facility] Progress Note (SOAP) Subjective: Sweating,interrupted sleep,anxiety,tremors,muscle aches,nausea,restless. Objective: 05/30/17 13:53 Vital Signs - 8 hr 05/30/17 05/30/17 06:00 10:00 Temperature 97.2 F L 97.9 F Pulse Rate 85 74 Respiratory 18 18 Rate Blood Pressure 126/78 118/64 Laboratory Tests 05/28/17 05/29/17 05/29/17 21:55 07:00 07:00 WBC 6.0 RBC 4.52 Hgb 13.0 Hct 39.0 MCV 86.3 MCH 28.8 MCHC 33.4 RDW 14.4 Plt Count 194 D MPV 7.5 D Sodium 139 Potassium 4.1 Chloride 102 Carbon Dioxide 30 Anion Gap 7 L BUN 13 D Creatinine 1.0 Creat Clearance w eGFR > 60 Random Glucose 83 D Calcium 9.1 Total Bilirubin 0.5 AST 13 L ALT 15 Alkaline Phosphatase 71 Total Protein 7.1 Albumin 3.7 Urine Color Dkyellow Urine Appearance Slcloudy Urine pH 6.0 D Ur Specific [place] 1.020 Urine Protein Negative Urine Glucose (UA) Negative Urine Ketones Negative Urine Blood Negative Urine Nitrite Negative Urine Bilirubin Negative Urine Urobilinogen Negative Ur Leukocyte Esterase Negative RPR Titer 05/29/17 07:00 WBC RBC Hgb Hct MCV MCH MCHC RDW Plt Count MPV Sodium Potassium Chloride Carbon Dioxide Anion Gap BUN Creatinine Creat Clearance w eGFR Random Glucose Calcium Total Bilirubin AST ALT Alkaline Phosphatase Total Protein Albumin Urine Color Urine Appearance Urine pH Ur Specific [place] Urine Protein Urine Glucose (UA) Urine Ketones Urine Blood Urine Nitrite Urine Bilirubin Urine Urobilinogen Ur Leukocyte Esterase RPR Titer Nonreactive labs noted Assessment: 05/30/17 13:54 Withdrawal sx. Plan: Continue detox
[2017-05-30] MEDS: ZOLPIDEM TARTRATE 10 MG TABLET (PARK CARE ONLY) PO PRN (22:13)
[2017-05-30] MEDS: THIAMINE HCL 100 MG TABLET (FP) PO SCH (22:14)
[2017-05-31] MEDS: diazePAM 5 MG TABLET PO PRN ×5 (00:30→21:05)
[2017-05-31] MEDS: METHADONE HCL 5 MG TABLET (FOR DETOX USE ONLY) PO SCH (10:08)
[2017-05-31] MEDS: NICOTINE 21 MG/24 HOURS TOPICAL PATCH TD SCH (10:08)
[2017-05-31] MEDS: PRENATAL VITAMINS W/ FOLIC ACID TABLET (FP) PO SCH (10:08)
[2017-05-31] MEDS: diazePAM 5 MG TABLET PO SCH ×2 (10:09→22:03)
--- NOTE | 2017-05-31 15:56 | PN ---
BHS Progress Note (SOAP) Subjective: Sweating,interrupted sleep,restless Objective: 05/31/17 15:55 Vital Signs - 8 hr 05/31/17 05/31/17 10:00 14:35 Temperature 97.7 F 98.1 F Pulse Rate 87 84 Respiratory 18 18 Rate Blood Pressure 128/70 113/68 Laboratory Last Values WBC 6.0 K/mm3 (4.0-10.0) 05/29/17 07:00 RBC 4.52 M/mm3 (4.00-5.60) 05/29/17 07:00 Hgb 13.0 GM/dL (11.7-16.9) 05/29/17 07:00 Hct 39.0 % (35.4-49) 05/29/17 07:00 MCV 86.3 fl (80-96) 05/29/17 07:00 MCH 28.8 pg (25.7-33.7) 05/29/17 07:00 MCHC 33.4 g/dl (32.0-35.9) 05/29/17 07:00 RDW 14.4 % (11.9-15.9) 05/29/17 07:00 Plt Count 194 K/MM3 (134-434) D 05/29/17 07:00 MPV 7.5 fl (7.5-11.1) D 05/29/17 07:00 Sodium 139 mmol/L (136-145) 05/29/17 07:00 Potassium 4.1 mmol/L (3.5-5.1) 05/29/17 07:00 Chloride 102 mmol/L (98-107) 05/29/17 07:00 Carbon Dioxide 30 mmol/L (21-32) 05/29/17 07:00 Anion Gap 7 (8-16) L 05/29/17 07:00 BUN 13 mg/dL (7-18) D 05/29/17 07:00 Creatinine 1.0 mg/dL (0.7-1.3) 05/29/17 07:00 Creat Clearance w eGFR > 60 (>60) 05/29/17 07:00 Random Glucose 83 mg/dL (74-106) D 05/29/17 07:00 Calcium 9.1 mg/dL (8.5-10.1) 05/29/17 07:00 Total Bilirubin 0.5 mg/dL (0.2-1.0) 05/29/17 07:00 AST 13 U/L (15-37) L 05/29/17 07:00 ALT 15 U/L (12-78) 05/29/17 07:00 Alkaline Phosphatase 71 U/L (45-117) 05/29/17 07:00 Total Protein 7.1 g/dl (6.4-8.2) 05/29/17 07:00 Albumin 3.7 g/dl (3.4-5.0) 05/29/17 07:00 Urine Color Dkyellow 05/28/17 21:55 Urine Appearance Slcloudy 05/28/17 21:55 Urine pH 6.0 (5.0-8.0) D 05/28/17 21:55 Ur Specific [place] 1.020 (1.005-1.025) 05/28/17 21:55 Urine Protein Negative (NEGATIVE) 05/28/17 21:55 Urine Glucose (UA) Negative (NEGATIVE) 05/28/17 21:55 Urine Ketones Negative (NEGATIVE) 05/28/17 21:55 Urine Blood Negative (NEGATIVE) 05/28/17 21:55 Urine Nitrite Negative (NEGATIVE) 05/28/17 21:55 Urine Bilirubin Negative (NEGATIVE) 05/28/17 21:55 Urine Urobilinogen Negative mg/dL (0.2-1.0) 05/28/17 21:55 Ur Leukocyte Esterase Negative (NEGATIVE) 05/28/17 21:55 RPR Titer Nonreactive (NONREACTIVE) 05/29/17 07:00 labs noted Assessment: 05/31/17 15:55 Withdrawal sx. Plan: Continue detox
[2017-05-31] MEDS: ZOLPIDEM TARTRATE 10 MG TABLET (PARK CARE ONLY) PO PRN (22:03)
[2017-05-31] MEDS: THIAMINE HCL 100 MG TABLET (FP) PO SCH (22:03)
[2017-06-01] MEDS ORDERED: METHADONE HCL 10 MG TABLET (FOR DETOX USE ONLY) PO SCH (10:00)
[2017-06-01] MEDS ORDERED: diazePAM 5 MG TABLET PO SCH (10:00)
--- NOTE | 2017-06-01 10:01 | PN ---
BHS Progress Note (SOAP) Subjective: feeling better little sweats Objective: 06/01/17 10:00 Vital Signs Temperature 98.4 06/01/17 10:00 Pulse Rate 86 06/01/17 10:00 Respiratory Rate 18 06/01/17 10:00 Blood Pressure 103/63 06/01/17 10:00 O2 Sat by Pulse Oximetry (%) awake/alert lying in bed no acute distress Assessment: 06/01/17 10:01 mild withdrawal sx Plan: continue detox increase fluids d/c in am
[2017-06-01] MEDS: PRENATAL VITAMINS W/ FOLIC ACID TABLET (FP) PO SCH (10:57)
[2017-06-01] MEDS: NICOTINE 21 MG/24 HOURS TOPICAL PATCH TD SCH (10:58)
[2017-06-01] MEDS: THIAMINE HCL 100 MG TABLET (FP) PO SCH (22:04)
[2017-06-01] MEDS: diphenhydrAMINE HCL 50 MG CAPSULE PO PRN (22:04)
[2017-06-02] MEDS ORDERED: METHADONE HCL 5 MG TABLET (FOR DETOX USE ONLY) PO SCH (06:00)
--- NOTE | 2017-06-02 08:39 | DS ---
[facility] Detox Discharge Summary Admission Date: 05/28/17 Discharge Date: 06/02/17 - History Present History: Alcohol Dependence, Cannabis Dependence, Cocaine Dependence, Opioid Dependence, Sedative Dependence - Physical Exam Results Vital Signs: Vital Signs Temperature 97.5 F L 06/02/17 06:24 Pulse Rate 80 06/02/17 06:24 Respiratory Rate 18 06/02/17 06:24 Blood Pressure 104/60 06/02/17 06:24 O2 Sat by Pulse Oximetry (%) - Treatment Hospital Course: Detox Protocol Followed, Detoxed Safely, Responded well, Discharged Condition Good, Rehab Referral Accepted - Medication Discharge Medications: Ambulatory Orders NK [No Known Home Medication] 05/28/17 - Diagnosis (1) Alcohol dependence with uncomplicated withdrawal Current Visit: Yes Status: Chronic (2) Cocaine dependence, uncomplicated Current Visit: Yes Status: Chronic (3) Drug-induced mood disorder Current Visit: Yes Status: Acute (4) Insomnia Current Visit: Yes Status: Acute (5) Nicotine dependence Current Visit: Yes Status: Chronic Qualifiers: Nicotine product type: cigarettes Substance use status: uncomplicated Qualified Code(s): F17.210 - Nicotine dependence, cigarettes, uncomplicated (6) Opioid dependence with withdrawal Current Visit: Yes Status: Chronic (7) Sedative, hypnotic or anxiolytic dependence with withdrawal, uncomplicated Current Visit: Yes Status: Chronic (8) Cannabis dependence Current Visit: Yes Status: Chronic - AMA [facility]
[2017-06-02] MEDS: PRENATAL VITAMINS W/ FOLIC ACID TABLET (FP) PO SCH (10:06)
[2017-06-02] MEDS: NICOTINE 21 MG/24 HOURS TOPICAL PATCH TD SCH (10:06)
[2017-06-02 10:10] VITALS: BP 131/71; PULSE 97; TEMP 98.1
== END 2017-06-02 10:39 | disposition home or self-care (01) | DRG 773 ==
LOC: YASAS 20:39 → Y6N 21:08
PROVIDERS: ADMIT Internal Medicine; ATTEND Internal Medicine
PROC: HZ2ZZZZ Detoxification Services for Substance Abuse Treatment (ICD-10-PCS; principal; 2017-05-28)
DX: F11.23 Opioid dependence with withdrawal (principal); F13.230 Sedative, hypnotic or anxiolytic dependence with withdrawal, uncomplicated; F10.230 Alcohol dependence with withdrawal, uncomplicated; F14.20 Cocaine dependence, uncomplicated; F12.20 Cannabis dependence, uncomplicated; F17.210 Nicotine dependence, cigarettes, uncomplicated; F19.24 Other psychoactive substance dependence with psychoactive substance-induced mood disorder; G47.00 Insomnia, unspecified
CPT/HCPCS: 36415; 80053; 81003; 85027; 86593; 93005; 93010

== ENCOUNTER 2017-08-04 08:07 | Inpatient (IN) | payer OTHER ==
[2017-08-04 09:01] VITALS: BMI 28.5
--- NOTE | 2017-08-04 11:47 | HP ---
COWS - Scale Resting Pulse: 1= [place] 81-100 Sweatin=Flushed/Facial Moisture Restless Observation: 1= Difficult to Sit Still Pupil Size: 0= Normal to Room Light Bone or Joint Aches: 2= Severe Diffuse Aches Runny Nose/ Eye Tearin= Runny Nose/Eyes GI Upset > 30mins: 2= Nausea/Diarrhea Tremor Observation: 2= Slight Tremor Visible Yawning Observation: 2= >3x During Session Anxiety or Irritability: 2=Irritable/Anxious Goose Flesh Skin: 3=Piloerection COWS Score: 19 Admission ROS S - HPI Chief Complaint: I need detox and get cleaned. Allergies/Adverse Reactions: Allergies Allergy/AdvReac Type Severity Reaction Status Date / Time No Known Allergies Allergy Verified 08/04/17 09:51 History of Present Illness: pt is a 26yr old male with a history of heroin dependence seeking detox for treatment. Exam Limitations: No Limitations - Ebola screening Have you traveled outside of the country in the last 21 days: No Have you had contact with anyone from an Ebola affected area: No Have you been sick,other than usual withdrawal symptoms: No Do you have a fever: No - Review of Systems Constitutional: Chills, Diaphoresis, Loss of Appetite, Night Sweats, Changes in sleep EENT: reports: Tearing, Nose Congestion Respiratory: reports: No Symptoms reported Cardiac: reports: Lightheadedness GI: reports: Diarrhea, Poor Appetite, Poor Fluid Intake : reports: No Symptoms Reported Musculoskeletal: reports: Back Pain, Joint Pain, Muscle Pain Integumentary: reports: Flushing, Sweating Neuro: reports: Tingling, Tremors Endocrine: reports: Excessive Sweating, Flushing, Intolerance to Cold, Intolerance to Heat Hematology: reports: No Symptoms Reported Psychiatric: reports: No Sypmtoms Reported, Judgement Intact, Mood/Affect Appropiate, Orientated x3 Other Systems: Reviewed and Negative Patient History - Patient Medical History Hx Anemia: No Hx Asthma: No Hx Chronic Obstructive Pulmonary Disease (COPD): No Hx Cancer: No Hx Cardiac Disorders: No Hx Congestive Heart Failure: No Hx Hypertension: No Hx Hypercholesterolemia: No Hx Pacemaker: No HX Cerebrovascular Accident: No Hx Seizures: No Hx Diabetes: No Hx Gastrointestinal Disorders: No Hx Liver Disease: No Hx Genitourinary Disorders: No Hx Sexually Transmitted Disorders: Yes (gonorrhea at age 24) Hx Renal Disease (ESRD): No Hx Thyroid Disease: No Hx Human Immunodeficiency Virus (HIV): No (negative) Hx Hepatitis C: No (negative) Hx Depression: No Hx Suicide Attempt: No (denies) Hx Bipolar Disorder: No Hx Schizophrenia: No - Patient Surgical History Past Surgical History: No Hx Neurologic Surgery: No Hx Cataract Extraction: No Hx Cardiac Surgery: No Hx Lung Surgery: No Hx Breast Surgery: No Hx Breast Biopsy: No Hx Abdominal Surgery: No Hx Appendectomy: No Hx Cholecystectomy: No Hx Genitourinary Surgery: No Hx Section: No Hx Orthopedic Surgery: No Anesthesia Reaction: No - PPD History Previous Implant?: Yes Documented Results: Negative w/proof Implanted On Prior R Admission?: Yes Date: 03/29/17 Results: 0 mm PPD to be Administered?: No - Reproductive History Patient is a Female of Child Bearing Age (11 -55 yrs old): No - Smoking Cessation Smoking history: Current every day smoker Have you smoked in the past 12 months: Yes Aproximately how many cigarettes per day: 20 Hx Chewing Tobacco Use: No Initiated information on smoking cessation: Yes 'Breaking Loose' booklet given: 08/04/17 - Substance & Tx. History Hx Alcohol Use: Yes Hx Substance Use: Yes Substance Use Type: Cocaine, Heroin Hx Substance Use Treatment: Yes (last detox 05/2017) - Substances Abused Heroin Route: Injection Frequency: Daily Amount used: 15 bags Age of first use: 19 Date of Last Use: 08/02/17 Cocaine Route: Injection Frequency: Daily Amount used: $30-40 Age of first use: 18 Date of Last Use: 08/02/17 Alcohol-four bill Route: Oral Frequency: Daily Amount used: 2 (24 oz.) Age of first use: 16 Date of Last Use: 08/03/17 Family Disease History - Family Disease History Family Disease History: Diabetes: Grandparent, Heart Disease: Grandparent, CA: Grandparent, Respiratory: Mother Admission Physical Exam S - Vital Signs Vital Signs: Vital Signs - 24 hr 08/04/17 08:59 Temperature 97.0 F L Pulse Rate 90 Respiratory 18 Rate Blood Pressure 148/73 - Physical General Appearance: Yes: Appropriately Dressed, Moderate Distress, Tremorous, Irritable, Sweating, Anxious HEENTM: Yes: Normal Voice, Nasal Congestion Respiratory: Yes: Lungs Clear, Normal Breath Sounds, No Respiratory Distress Neck: Yes: No masses,lesions,Nodules Breast: Yes: Within Normal Limits Cardiology: Yes: Regular Rhythm, Regular Rate, S1, S2 Abdominal: Yes: Within Normal Limits, Normal Bowel Sounds, Soft Genitourinary: Yes: Within Normal Limits Back: Yes: Normal Inspection Musculoskeletal: Yes: full range of Motion Extremities: Yes: Normal Capillary Refill, Normal Inspection, Tremors Integumentary: Yes: Normal Color, Diaphoresis, Track Sanchez Lymphatic: Yes: Within Normal Limits - Diagnostic (1) Cannabis dependence Current Visit: Yes Status: Chronic (2) Cocaine dependence, uncomplicated Current Visit: Yes Status: Chronic (3) Nicotine dependence Current Visit: No Status: Chronic Qualifiers: Nicotine product type: cigarettes Substance use status: uncomplicated Qualified Code(s): F17.210 - Nicotine dependence, cigarettes, uncomplicated; F17.210 - Nicotine dependence, cigarettes, uncomplicated (4) Opioid dependence with withdrawal Current Visit: Yes Status: Chronic Cleared for Admission [facility] - Detox or Rehab [facility] Level of Care: Medically Managed Detox Regimen/Protocol: Methadone [facility] Breath Alcohol Content Breath Alcohol Content: 0 Urine Drug Screen - Results Drug Screen Negative: No Urine Drug Screen Results: ALYCIA-Cocaine, OPI-Opiates
[2017-08-04] MEDS ORDERED: IBUPROFEN 400 MG TABLET (FP) PO PRN (11:49)
[2017-08-04] MEDS ORDERED: diphenhydrAMINE HCL 50 MG CAPSULE PO PRN (11:49)
[2017-08-04] MEDS ORDERED: NICOTINE POLACRILEX 4 MG GUM BUC PRN (11:49)
[2017-08-04] MEDS ORDERED: LOPERAMIDE HCL 2 MG CAPSULE PO PRN (11:49)
[2017-08-04] MEDS ORDERED: P-EPHED 60MG/TRIPROLIDI 2.5MG TABLET PO PRN (11:49)
[2017-08-04] MEDS ORDERED: MAGNESIUM HYDROX 2400MG/30ML ORAL SUSPENSION 30 ML CUP PO PRN (11:49)
[2017-08-04] MEDS ORDERED: ACETAMINOPHEN 325 MG TABLET (FP) PO PRN (11:49)
[2017-08-04] MEDS ORDERED: MAGNESIUM CITRATE 300 ML BOTTLE PO PRN (11:49)
[2017-08-04] MEDS ORDERED: MENTHOL/PHENOL 1 EACH UD MM PRN (11:49)
[2017-08-04] MEDS ORDERED: guaiFENesin/D-METHORPHAN HB 10 ML UNIT-DOSE CUPS PO PRN (11:49)
[2017-08-04] MEDS ORDERED: MAG HYDROX/AL HYDROX/SIMETH 30 ML UNIT-DOSE CUP PO PRN (11:49)
[2017-08-04] MEDS ORDERED: METHADONE HCL 10 MG TABLET (FOR DETOX USE ONLY) PO ONE ×2 (12:12→23:00)
[2017-08-04] MEDS: diazePAM 5 MG TABLET PO PRN ×3 (12:41→22:03)
[2017-08-04] MEDS: NICOTINE 21 MG/24 HOURS TOPICAL PATCH TD SCH ×2 (13:45→15:35)
[2017-08-04 16:37] LABS: MCH 29.2 pg (25.7-33.7); MCHC 33.7 g/dl (32.0-35.9); MEAN CELL VOLUME 86.8 fl (80-96); MEAN PLT VOLUME 8.5 fl (7.5-11.1); PLATELET COUNT 231 K/MM3 (134-434); RDW 14.8 % (11.9-15.9); WHITE BLOOD COUNT 9.6 K/mm3 (4.0-10.0)
[2017-08-04 16:42] LABS: URINE APPEARANCE SLCLOUDY; URINE BILIRUBIN NEGATIVE (NEGATIVE); URINE BLOOD NEGATIVE (NEGATIVE); URINE COLOR YELLOW; URINE GLUCOSE (UA) NEGATIVE (NEGATIVE); URINE KETONE TRACE (NEGATIVE); URINE NITRITE NEGATIVE (NEGATIVE); URINE PROTEIN NEGATIVE (NEGATIVE)
[2017-08-04 16:52] LABS: ALBUMIN 4.4 g/dl (3.4-5.0); ALK PHOS 75 U/L (45-117); ANION GAP 8 (8-16); BILIRUBIN,TOTAL 0.7 mg/dL (0.2-1.0); CALCIUM 9.4 mg/dL (8.5-10.1); CO2 29 mmol/L (21-32); CREATININE 1.1 mg/dL (0.7-1.3); GLUCOSE,RANDOM 93 mg/dL (74-106); SGOT/AST 26 U/L (15-37); SGPT/ALT 25 U/L (12-78); TOT PROT 8.5 g/dl (6.4-8.2)
[2017-08-04 18:28] LABS: URINE LEUK ESTERASE Negative (NEGATIVE)
[2017-08-04] MEDS: cloNIDine HCL 0.1 MG TABLET PO SCH (22:03)
[2017-08-04] MEDS: THIAMINE HCL 100 MG TABLET (FP) PO SCH (22:03)
[2017-08-05] MEDS: diazePAM 5 MG TABLET PO PRN ×5 (06:03→22:32)
[2017-08-05 09:04] LABS: HIV 1 & 2 AB NEGATIVE; HIV 1 AGp24 NEGATIVE
[2017-08-05] MEDS ORDERED: METHADONE HCL 10 MG TABLET (FOR DETOX USE ONLY) PO ONE (10:00)
[2017-08-05] MEDS: PRENATAL VITAMINS W/ FOLIC ACID TABLET (FP) PO SCH (10:33)
[2017-08-05] MEDS: cloNIDine HCL 0.1 MG TABLET PO SCH ×3 (10:33→22:06)
[2017-08-05] MEDS: NICOTINE 21 MG/24 HOURS TOPICAL PATCH TD SCH (10:34)
--- NOTE | 2017-08-05 11:58 | EKG ---
Test Reason : Blood Pressure : / mmHG Vent. Rate : 072 BPM Atrial Rate : 072 BPM P-R Int : 148 ms QRS Dur : 094 ms QT Int : 366 ms P-R-T Axes : 049 071 057 degrees QTc Int : 400 ms NORMAL SINUS RHYTHM NORMAL ECG WHEN COMPARED WITH ECG OF 28-MAY-2017 21:02, QRS AXIS SHIFTED LEFT T WAVE INVERSION NO LONGER EVIDENT IN LATERAL LEADS Confirmed by ITA YANG, NANI ([id number]) on 08/05/2017 11:57:40 AM Referred By: Confirmed By:NANI JEAN BAPTISTE MD
--- NOTE | 2017-08-05 14:12 | PN ---
[facility] COWS - Scale Resting Pulse: 1= [place] 81-100 Sweatin= Chills/Flushing Restless Observation: 1= Difficult to Sit Still Pupil Size: 0= Normal to Room Light Bone or Joint Aches: 2= Severe Diffuse Aches Runny Nose/ Eye Tearin= None GI Upset > 30mins: 2= Nausea/Diarrhea Tremor Observation of Outstretched Hands: 2= Slight Tremor Visible Yawning Observation: 1= 1-2x During Session Anxiety or Irritability: 2=Irritable/Anxious Goose Flesh Skin: 3=Piloerection COWS Score: 15 S Progress Note (SOAP) Subjective: Fatigue, Body Aches, Sweating, Interrupted sleep, Diarrhea. Objective: PT. A & O X 3. NO ACUTE DISTRESS. 08/05/17 14:10 Vital Signs Temperature 97.3 F L 08/05/17 13:22 Pulse Rate 94 H 08/05/17 13:22 Respiratory Rate 20 08/05/17 13:22 Blood Pressure 120/77 08/05/17 13:22 O2 Sat by Pulse Oximetry (%) Laboratory Tests 08/04/17 08/04/17 08/04/17 11:00 11:00 11:00 WBC 9.6 D RBC 5.22 Hgb 15.3 D Hct 45.3 D MCV 86.8 MCH 29.2 MCHC 33.7 RDW 14.8 Plt Count 231 MPV 8.5 D Sodium 140 Potassium 4.3 Chloride 103 Carbon Dioxide 29 Anion Gap 8 BUN 13 Creatinine 1.1 Creat Clearance w eGFR > 60 Random Glucose 93 Calcium 9.4 Total Bilirubin 0.7 D AST 26 D ALT 25 D Alkaline Phosphatase 75 Total Protein 8.5 H Albumin 4.4 Urine Color Urine Appearance Urine pH Ur Specific [place] Urine Protein Urine Glucose (UA) Urine Ketones Urine Blood Urine Nitrite Urine Bilirubin Urine Urobilinogen Ur Leukocyte Esterase RPR Titer Hepatitis C Antibody HIV 1&2 Antibody Screen Negative HIV P24 Antigen Negative 08/04/17 08/04/17 08/04/17 11:00 11:00 15:30 WBC RBC Hgb Hct MCV MCH MCHC RDW Plt Count MPV Sodium Potassium Chloride Carbon Dioxide Anion Gap BUN Creatinine Creat Clearance w eGFR Random Glucose Calcium Total Bilirubin AST ALT Alkaline Phosphatase Total Protein Albumin Urine Color Yellow Urine Appearance Slcloudy Urine pH 6.0 Ur Specific [place] 1.020 Urine Protein Negative Urine Glucose (UA) Negative Urine Ketones Trace H Urine Blood Negative Urine Nitrite Negative Urine Bilirubin Negative Urine Urobilinogen 2.0 Ur Leukocyte Esterase Negative RPR Titer Nonreactive Hepatitis C Antibody 0.1 HIV 1&2 Antibody Screen HIV P24 Antigen LABS NOTED. Assessment: 08/05/17 14:11 WITHDRAWAL SYMPTOMS. Plan: CONTINUE DETOX. PRN IMMODIUM FOR DIARRHEA. INCREASE DAILY PO FLUID INTAKE.
--- NOTE | 2017-08-05 17:24 | PN ---
[facility] Progress Note Note: Psychiatry Attending's note : Approached by patient. Reason : complaint of insomnia. Mr Gabi is already known to check writer. Benign hospital course. Plan : ambien 10 mg po hs. Sleep hygiene discussed. Parasomnias discussed. Patient agrees with careplan.
[2017-08-05] MEDS: THIAMINE HCL 100 MG TABLET (FP) PO SCH (22:06)
[2017-08-05] MEDS: ZOLPIDEM TARTRATE 5 MG TABLET PO PRN (22:06)
[2017-08-06] MEDS: diazePAM 5 MG TABLET PO PRN ×6 (03:02→23:02)
[2017-08-06] MEDS ORDERED: METHADONE HCL 5 MG TABLET (FOR DETOX USE ONLY) PO ONE (10:00)
[2017-08-06] MEDS: PRENATAL VITAMINS W/ FOLIC ACID TABLET (FP) PO SCH (10:38)
[2017-08-06] MEDS: NICOTINE 21 MG/24 HOURS TOPICAL PATCH TD SCH (10:38)
[2017-08-06] MEDS: cloNIDine HCL 0.1 MG TABLET PO SCH ×2 (10:38→22:09)
--- NOTE | 2017-08-06 13:03 | PN ---
BHS COWS - Scale Resting Pulse: 1= [place] 81-100 Sweatin= Chills/Flushing Restless Observation: 3= Extraneous Movement Pupil Size: 0= Normal to Room Light Bone or Joint Aches: 2= Severe Diffuse Aches Runny Nose/ Eye Tearin= Runny Nose/Eyes GI Upset > 30mins: 2= Nausea/Diarrhea Tremor Observation of Outstretched Hands: 2= Slight Tremor Visible Yawning Observation: 1= 1-2x During Session Anxiety or Irritability: 2=Irritable/Anxious Goose Flesh Skin: 0=Smooth Skin COWS Score: 16 BHS Progress Note (SOAP) Subjective: Sweating, nausea, interrupted sleep, anxious, muscle spasm Objective: 08/06/17 13:00 Last Vital Signs Temp Pulse Resp BP Pulse Ox 98.7 F 94 H 20 108/65 08/06/17 09:18 08/06/17 09:18 08/06/17 09:18 08/06/17 09:18 Laboratory Tests 08/04/17 08/04/17 08/04/17 11:00 11:00 11:00 WBC 9.6 D RBC 5.22 Hgb 15.3 D Hct 45.3 D MCV 86.8 MCH 29.2 MCHC 33.7 RDW 14.8 Plt Count 231 MPV 8.5 D Sodium 140 Potassium 4.3 Chloride 103 Carbon Dioxide 29 Anion Gap 8 BUN 13 Creatinine 1.1 Creat Clearance w eGFR > 60 Random Glucose 93 Calcium 9.4 Total Bilirubin 0.7 D AST 26 D ALT 25 D Alkaline Phosphatase 75 Total Protein 8.5 H Albumin 4.4 Urine Color Urine Appearance Urine pH Ur Specific [place] Urine Protein Urine Glucose (UA) Urine Ketones Urine Blood Urine Nitrite Urine Bilirubin Urine Urobilinogen Ur Leukocyte Esterase RPR Titer Hepatitis C Antibody HIV 1&2 Antibody Screen Negative HIV P24 Antigen Negative 08/04/17 08/04/17 08/04/17 11:00 11:00 15:30 WBC RBC Hgb Hct MCV MCH MCHC RDW Plt Count MPV Sodium Potassium Chloride Carbon Dioxide Anion Gap BUN Creatinine Creat Clearance w eGFR Random Glucose Calcium Total Bilirubin AST ALT Alkaline Phosphatase Total Protein Albumin Urine Color Yellow Urine Appearance Slcloudy Urine pH 6.0 Ur Specific [place] 1.020 Urine Protein Negative Urine Glucose (UA) Negative Urine Ketones Trace H Urine Blood Negative Urine Nitrite Negative Urine Bilirubin Negative Urine Urobilinogen 2.0 Ur Leukocyte Esterase Negative RPR Titer Nonreactive Hepatitis C Antibody 0.1 HIV 1&2 Antibody Screen HIV P24 Antigen Labs noted Assessment: 08/06/17 13:01 Withdrawal symptoms Plan: Continue detox Flexeril 10mg PO TID PRN for muscle spasm
[2017-08-06] MEDS: ZOLPIDEM TARTRATE 5 MG TABLET PO PRN (22:08)
[2017-08-06] MEDS: THIAMINE HCL 100 MG TABLET (FP) PO SCH (22:08)
[2017-08-06] MEDS: CYCLOBENZAPRINE HCL 10 MG TABLET (FP) PO PRN (23:10)
[2017-08-07] MEDS: diazePAM 5 MG TABLET PO PRN ×2 (04:24→10:40)
[2017-08-07] MEDS ORDERED: METHADONE HCL 5 MG TABLET (FOR DETOX USE ONLY) PO ONE (10:00)
[2017-08-07] MEDS: CYCLOBENZAPRINE HCL 10 MG TABLET (FP) PO PRN ×2 (10:39→22:08)
[2017-08-07] MEDS: PRENATAL VITAMINS W/ FOLIC ACID TABLET (FP) PO SCH (10:40)
[2017-08-07] MEDS: cloNIDine HCL 0.1 MG TABLET PO SCH ×2 (10:40→22:08)
[2017-08-07] MEDS: NICOTINE 21 MG/24 HOURS TOPICAL PATCH TD SCH (10:40)
--- NOTE | 2017-08-07 11:02 | PN ---
BHS Progress Note (SOAP) Subjective: Sweating,interrupted sleep,restless Objective: 08/07/17 11:01 Vital Signs - 8 hr 08/07/17 08/07/17 03:30 06:31 Temperature 97.5 F L Pulse Rate 76 Respiratory 18 18 Rate Blood Pressure 92/53 Laboratory Tests 08/04/17 08/04/17 08/04/17 11:00 11:00 11:00 WBC 9.6 D RBC 5.22 Hgb 15.3 D Hct 45.3 D MCV 86.8 MCH 29.2 MCHC 33.7 RDW 14.8 Plt Count 231 MPV 8.5 D Sodium 140 Potassium 4.3 Chloride 103 Carbon Dioxide 29 Anion Gap 8 BUN 13 Creatinine 1.1 Creat Clearance w eGFR > 60 Random Glucose 93 Calcium 9.4 Total Bilirubin 0.7 D AST 26 D ALT 25 D Alkaline Phosphatase 75 Total Protein 8.5 H Albumin 4.4 Urine Color Urine Appearance Urine pH Ur Specific [place] Urine Protein Urine Glucose (UA) Urine Ketones Urine Blood Urine Nitrite Urine Bilirubin Urine Urobilinogen Ur Leukocyte Esterase RPR Titer Hepatitis C Antibody HIV 1&2 Antibody Screen Negative HIV P24 Antigen Negative 08/04/17 08/04/17 08/04/17 11:00 11:00 15:30 WBC RBC Hgb Hct MCV MCH MCHC RDW Plt Count MPV Sodium Potassium Chloride Carbon Dioxide Anion Gap BUN Creatinine Creat Clearance w eGFR Random Glucose Calcium Total Bilirubin AST ALT Alkaline Phosphatase Total Protein Albumin Urine Color Yellow Urine Appearance Slcloudy Urine pH 6.0 Ur Specific [place] 1.020 Urine Protein Negative Urine Glucose (UA) Negative Urine Ketones Trace H Urine Blood Negative Urine Nitrite Negative Urine Bilirubin Negative Urine Urobilinogen 2.0 Ur Leukocyte Esterase Negative RPR Titer Nonreactive Hepatitis C Antibody 0.1 HIV 1&2 Antibody Screen HIV P24 Antigen labs noted Assessment: 08/07/17 11:01 Withdrawal sx. Plan: Continue detox
[2017-08-07] MEDS: hydrOXYzine PAMOATE 50 MG CAPSULE (FP) PO PRN (16:55)
[2017-08-07] MEDS: ZOLPIDEM TARTRATE 5 MG TABLET PO PRN (22:08)
[2017-08-07] MEDS: THIAMINE HCL 100 MG TABLET (FP) PO SCH (22:08)
[2017-08-08] MEDS ORDERED: METHADONE HCL 10 MG TABLET (FOR DETOX USE ONLY) PO ONE (10:00)
[2017-08-08] MEDS: PRENATAL VITAMINS W/ FOLIC ACID TABLET (FP) PO SCH (10:44)
[2017-08-08] MEDS: cloNIDine HCL 0.1 MG TABLET PO SCH ×2 (10:44→22:33)
[2017-08-08] MEDS: CYCLOBENZAPRINE HCL 10 MG TABLET (FP) PO PRN ×2 (10:45→22:33)
[2017-08-08] MEDS: NICOTINE 21 MG/24 HOURS TOPICAL PATCH TD SCH (10:45)
--- NOTE | 2017-08-08 12:13 | PN ---
BHS Progress Note (SOAP) Subjective: Sweating,muscle aches,interrupted sleep,restless Objective: 08/08/17 12:12 Vital Signs - 8 hr 08/08/17 08/08/17 06:00 09:54 Temperature 98.1 F 97.2 F L Pulse Rate 74 101 H Respiratory 18 20 Rate Blood Pressure 94/51 110/68 Laboratory Last Values WBC 9.6 K/mm3 (4.0-10.0) D 08/04/17 11:00 RBC 5.22 M/mm3 (4.00-5.60) 08/04/17 11:00 Hgb 15.3 GM/dL (11.7-16.9) D 08/04/17 11:00 Hct 45.3 % (35.4-49) D 08/04/17 11:00 MCV 86.8 fl (80-96) 08/04/17 11:00 MCH 29.2 pg (25.7-33.7) 08/04/17 11:00 MCHC 33.7 g/dl (32.0-35.9) 08/04/17 11:00 RDW 14.8 % (11.9-15.9) 08/04/17 11:00 Plt Count 231 K/MM3 (134-434) 08/04/17 11:00 MPV 8.5 fl (7.5-11.1) D 08/04/17 11:00 Sodium 140 mmol/L (136-145) 08/04/17 11:00 Potassium 4.3 mmol/L (3.5-5.1) 08/04/17 11:00 Chloride 103 mmol/L (98-107) 08/04/17 11:00 Carbon Dioxide 29 mmol/L (21-32) 08/04/17 11:00 Anion Gap 8 (8-16) 08/04/17 11:00 BUN 13 mg/dL (7-18) 08/04/17 11:00 Creatinine 1.1 mg/dL (0.7-1.3) 08/04/17 11:00 Creat Clearance w eGFR > 60 (>60) 08/04/17 11:00 Random Glucose 93 mg/dL (74-106) 08/04/17 11:00 Calcium 9.4 mg/dL (8.5-10.1) 08/04/17 11:00 Total Bilirubin 0.7 mg/dL (0.2-1.0) D 08/04/17 11:00 AST 26 U/L (15-37) D 08/04/17 11:00 ALT 25 U/L (12-78) D 08/04/17 11:00 Alkaline Phosphatase 75 U/L (45-117) 08/04/17 11:00 Total Protein 8.5 g/dl (6.4-8.2) H 08/04/17 11:00 Albumin 4.4 g/dl (3.4-5.0) 08/04/17 11:00 Urine Color Yellow 08/04/17 15:30 Urine Appearance Slcloudy 08/04/17 15:30 Urine pH 6.0 (5.0-8.0) 08/04/17 15:30 Ur Specific [place] 1.020 (1.005-1.025) 08/04/17 15:30 Urine Protein Negative (NEGATIVE) 08/04/17 15:30 Urine Glucose (UA) Negative (NEGATIVE) 08/04/17 15:30 Urine Ketones Trace (NEGATIVE) H 08/04/17 15:30 Urine Blood Negative (NEGATIVE) 08/04/17 15:30 Urine Nitrite Negative (NEGATIVE) 08/04/17 15:30 Urine Bilirubin Negative (NEGATIVE) 08/04/17 15:30 Urine Urobilinogen 2.0 mg/dL (0.2-1.0) 08/04/17 15:30 Ur Leukocyte Esterase Negative (NEGATIVE) 08/04/17 15:30 RPR Titer Nonreactive (NONREACTIVE) 08/04/17 11:00 Hepatitis C Antibody 0.1 s/co ratio (0.0-0.9) 08/04/17 11:00 HIV 1&2 Antibody Screen Negative 08/04/17 11:00 HIV P24 Antigen Negative 08/04/17 11:00 labs noted Assessment: 08/08/17 12:12 Withdrawal sx. Plan: Continue detox
[2017-08-08] MEDS: hydrOXYzine PAMOATE 50 MG CAPSULE (FP) PO PRN (12:19)
[2017-08-08] MEDS: ZOLPIDEM TARTRATE 5 MG TABLET PO PRN (22:33)
[2017-08-08] MEDS: THIAMINE HCL 100 MG TABLET (FP) PO SCH (22:33)
[2017-08-09] MEDS ORDERED: METHADONE HCL 5 MG TABLET (FOR DETOX USE ONLY) PO ONE (06:00)
[2017-08-09 09:27] VITALS: BP 109/71; PULSE 128; TEMP 97.3
--- NOTE | 2017-08-09 13:54 | DS ---
[facility] Detox Discharge Summary Admission Date: 08/04/17 Discharge Date: 08/09/17 - History Present History: Cocaine Dependence, Opioid Dependence Pertinent Past History: Denies - Physical Exam Results Vital Signs: Vital Signs Temperature 97.3 F L 08/09/17 09:27 Pulse Rate 128 H 08/09/17 09:27 Respiratory Rate 20 08/09/17 09:27 Blood Pressure 109/71 08/09/17 09:27 O2 Sat by Pulse Oximetry (%) Pertinent Admission Physical Exam Findings: Withdrawal symptoms Laboratory Tests 08/04/17 08/04/17 08/04/17 11:00 11:00 11:00 WBC 9.6 D RBC 5.22 Hgb 15.3 D Hct 45.3 D MCV 86.8 MCH 29.2 MCHC 33.7 RDW 14.8 Plt Count 231 MPV 8.5 D Sodium 140 Potassium 4.3 Chloride 103 Carbon Dioxide 29 Anion Gap 8 BUN 13 Creatinine 1.1 Creat Clearance w eGFR > 60 Random Glucose 93 Calcium 9.4 Total Bilirubin 0.7 D AST 26 D ALT 25 D Alkaline Phosphatase 75 Total Protein 8.5 H Albumin 4.4 Urine Color Urine Appearance Urine pH Ur Specific [place] Urine Protein Urine Glucose (UA) Urine Ketones Urine Blood Urine Nitrite Urine Bilirubin Urine Urobilinogen Ur Leukocyte Esterase RPR Titer Hepatitis C Antibody HIV 1&2 Antibody Screen Negative HIV P24 Antigen Negative 08/04/17 08/04/17 08/04/17 11:00 11:00 15:30 WBC RBC Hgb Hct MCV MCH MCHC RDW Plt Count MPV Sodium Potassium Chloride Carbon Dioxide Anion Gap BUN Creatinine Creat Clearance w eGFR Random Glucose Calcium Total Bilirubin AST ALT Alkaline Phosphatase Total Protein Albumin Urine Color Yellow Urine Appearance Slcloudy Urine pH 6.0 Ur Specific [place] 1.020 Urine Protein Negative Urine Glucose (UA) Negative Urine Ketones Trace H Urine Blood Negative Urine Nitrite Negative Urine Bilirubin Negative Urine Urobilinogen 2.0 Ur Leukocyte Esterase Negative RPR Titer Nonreactive Hepatitis C Antibody 0.1 HIV 1&2 Antibody Screen HIV P24 Antigen Labs noted - Treatment Hospital Course: Detox Protocol Followed, Detoxed Safely, Responded well, Discharged Condition Good - Medication Discharge Medications: Ambulatory Orders NK [No Known Home Medication] 05/28/17 - Diagnosis (1) Alcohol dependence with uncomplicated withdrawal Status: Chronic (2) Cocaine dependence, uncomplicated Status: Chronic (3) Nicotine dependence Status: Chronic Qualifiers: Nicotine product type: cigarettes Substance use status: uncomplicated Qualified Code(s): F17.210 - Nicotine dependence, cigarettes, uncomplicated; F17.210 - Nicotine dependence, cigarettes, uncomplicated (4) Opioid dependence with withdrawal Status: Acute - AMA Did Patient Leave Against Medical Advice: No (Follow up with PCP in 1-2 weeks post discharge)
== END 2017-08-09 09:03 | disposition home or self-care (01) | DRG 773 ==
LOC: YASAS 08:07 → Y3N 11:24
PROVIDERS: ADMIT Internal Medicine; ATTEND Internal Medicine
PROC: HZ2ZZZZ Detoxification Services for Substance Abuse Treatment (ICD-10-PCS; principal; 2017-08-04)
DX: F11.23 Opioid dependence with withdrawal (principal); F10.230 Alcohol dependence with withdrawal, uncomplicated; F14.20 Cocaine dependence, uncomplicated; F17.210 Nicotine dependence, cigarettes, uncomplicated; Z87.438 Personal history of other diseases of male genital organs
CPT/HCPCS: 36415; 80053; 81003; 85027; 86593; 86803; 87389; 93005; 93010

== ENCOUNTER 2019-02-20 18:26 | Inpatient (IN) | payer OTHER ==
[2019-02-20 20:02] VITALS: BMI 29.5
--- NOTE | 2019-02-20 20:10 | HP ---
COWS - Scale Resting Pulse: 2= [place] 101-120 Sweatin=Flushed/Facial Moisture Restless Observation: 1= Difficult to Sit Still Pupil Size: 2= Moderately Dilated Bone or Joint Aches: 2= Severe Diffuse Aches Runny Nose/ Eye Tearin= Runny Nose/Eyes GI Upset > 30mins: 1= Stomach Cramp Tremor Observation: 1= Tremor [place], Not Seen Yawning Observation: 1= 1-2x During Session Anxiety or Irritability: 1=Feels Anxious/Irritable Goose Flesh Skin: 3=Piloerection COWS Score: 18 CIWA Score - Admission Criteria [facility] Guidelines: Admission for Medically Managed Detox: Requires at least one of the followin. CIWA greater than 12 2. Seizures within the past 24 hours 3. Delirium tremens within the past 24 hours 4. Hallucinations within the past 24 hours 5. Acute intervention needed for co occurring medical disorder 6. Acute intervention needed for co occurring psychiatric disorder 7. Severe withdrawal that cannot be handled at a lower level of care (continued vomiting, continued diarrhea, abnormal vital signs) requiring intravenous medication and/or fluids 8. Admission ROS [facility] - [facility] Chief Complaint: Withdrawal symptoms Allergies/Adverse Reactions: Allergies Allergy/AdvReac Type Severity Reaction Status Date / Time No Known Allergies Allergy Verified 02/20/19 19:32 History of Present Illness: 28 y.o. man with an extensive history of heroin dependence is here seeking detox services. He reports he was at [facility] two weeks ago for detox but left AMA. Longest period of illicit drug abstinence has been 1 year. Exam Limitations: No Limitations - Ebola screening Have you traveled outside of the country in the last 21 days: No Have you had contact with anyone from an Ebola affected area: No Do you have a fever: No - Review of Systems Constitutional: Chills, Diaphoresis, Night Sweats EENT: reports: Nose Congestion Respiratory: reports: Shortness of Breath Cardiac: reports: No Symptoms Reported GI: reports: Constipated : reports: Urgency Musculoskeletal: reports: No Symptoms Reported Integumentary: reports: Other (Track garcia) Neuro: reports: Tingling Endocrine: reports: No Symptoms Reported Hematology: reports: No Symptoms Reported Psychiatric: reports: Anxious, Depressed Other Systems: Reviewed and Negative Patient History - Patient Medical History Hx Anemia: No Hx Asthma: No Hx Chronic Obstructive Pulmonary Disease (COPD): No Hx Cancer: No Hx Cardiac Disorders: No Hx Congestive Heart Failure: No Hx Hypertension: No Hx Hypercholesterolemia: No Hx Pacemaker: No HX Cerebrovascular Accident: No Hx Seizures: No Hx Diabetes: No Hx Gastrointestinal Disorders: No Hx Liver Disease: No Hx Genitourinary Disorders: No Hx Sexually Transmitted Disorders: Yes (Gonorrhea at age 24) Hx Renal Disease (ESRD): No Hx Thyroid Disease: No Hx Human Immunodeficiency Virus (HIV): No (Negative) Hx Hepatitis C: No (Negative) Hx Depression: No Hx Suicide Attempt: No (Denies) Hx Bipolar Disorder: No Hx Schizophrenia: No - Patient Surgical History Past Surgical History: No Hx Neurologic Surgery: No Hx Cataract Extraction: No Hx Cardiac Surgery: No Hx Lung Surgery: No Hx Breast Surgery: No Hx Breast Biopsy: No Hx Abdominal Surgery: No Hx Appendectomy: No Hx Cholecystectomy: No Hx Genitourinary Surgery: No Hx Section: No Hx Orthopedic Surgery: No Anesthesia Reaction: No - PPD History Previous Implant?: Yes Documented Results: Negative w/proof Implanted On Prior [facility] Admission?: Yes Date: 03/29/17 Results: 0 mm PPD to be Administered?: Yes - Reproductive History Patient is a Female of Child Bearing Age (11 -55 yrs old): No - Smoking Cessation Smoking history: Current every day smoker Have you smoked in the past 12 months: Yes Aproximately how many cigarettes per day: 10 Hx Chewing Tobacco Use: No Initiated information on smoking cessation: Yes 'Breaking Loose' booklet given: 02/20/19 - Substance & Tx. History Hx Alcohol Use: No Hx Substance Use: Yes Substance Use Type: Heroin, Tranquilizers Hx Substance Use Treatment: Yes - Substances abused Heroin Substance route: Injection Frequency: Daily Amount used: 1 BUNDLE Age of first use: 20 Date of last use: 02/19/19 Crystal meth Substance route: Smoking Frequency: 3-6 times per week Amount used: 1 GRAM Age of first use: 27 Date of last use: 02/20/19 Alprazolam (Xanax) Substance route: Oral Frequency: 3-6 times per week Amount used: 2/2MG Age of first use: 16 Date of last use: 02/17/19 Family Disease History - Family Disease History Family Disease History: Diabetes: Grandparent, Heart Disease: Grandparent, CA: Grandparent, Respiratory: Mother Admission Physical Exam [facility] - Vital Signs Vital Signs: Vital Signs - 24 hr 02/20/19 02/20/19 19:32 20:00 Temperature 99.4 F 99.4 F Pulse Rate 118 H 118 H Respiratory 18 18 Rate Blood Pressure 142/98 142/98 - Physical General Appearance: Yes: Irritable, Sweating, Anxious HEENTM: Yes: Hearing grossly Normal, Normocephalic Respiratory: Yes: Chest Non-Tender, Lungs Clear, Normal Breath Sounds, No Respiratory Distress, No Accessory Muscle Use Neck: Yes: No masses,lesions,Nodules Breast: Yes: Breast Exam Deferred Cardiology: Yes: Regular Rhythm, Tachycardia Abdominal: Yes: Normal Bowel Sounds, Non Tender, Flat Genitourinary: Yes: Other Back: Yes: Normal Inspection Musculoskeletal: Yes: full range of Motion Extremities: Yes: Normal Inspection, Normal Range of Motion, Non-Tender Neurological: Yes: Alert, Normal Mood/Affect, Normal Response Integumentary: Yes: Normal Color, Dry, Warm Lymphatic: Yes: Within Normal Limits - Diagnostic (1) Opioid dependence with withdrawal Current Visit: Yes Status: Chronic (2) Nicotine dependence Current Visit: Yes Status: Chronic Qualifiers: Nicotine product type: cigarettes Substance use status: uncomplicated Qualified Code(s): F17.210 - Nicotine dependence, cigarettes, uncomplicated (3) Sedative, hypnotic or anxiolytic dependence with withdrawal, uncomplicated Current Visit: No Status: Chronic (4) 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 Current Visit: Yes Status: Chronic (5) Sedative, hypnotic or anxiolytic dependence, uncomplicated Current Visit: Yes Status: Chronic Cleared for Admission [facility] - Detox or Rehab [facility] Level of Care: Medically Managed Detox Regimen/Protocol: Methadone/Valium Breathalyzer - Breathalyzer Breathalyzer: 0 Urine Drug Screen - Test Device Lot number: [id number] Expiration date: 09/17/20 - Control Is test valid?: Yes - Results Drug screen NEGATIVE: No Urine drug screen results: MET-Methamphetamine, FEN-Fentanyl, MOP-Opiates, MTD- Methadone, BZO-Benzodiazepines, MDMA-Ecstasy Inpatient Rehab Admission - Rehab Decision to Admit Inpatient rehab admission?: No
[2019-02-20] MEDS ORDERED: MAGNESIUM CITRATE 300 ML BOTTLE PO PRN (20:11)
[2019-02-20] MEDS ORDERED: MELATONIN 5 MG TABLETS PO PRN (20:11)
[2019-02-20] MEDS ORDERED: cloNIDine HCL 0.1 MG TABLET PO PRN (20:11)
[2019-02-20] MEDS ORDERED: diazePAM 5 MG TABLET PO ONE (20:11)
[2019-02-20] MEDS ORDERED: MAG HYDROX/AL HYDROX/SIMETH 30 ML UNIT-DOSE CUP PO PRN (20:11)
[2019-02-20] MEDS ORDERED: BISMUTH SUBSALICYLATE 524 MG/30 ML UD PO PRN (20:11)
[2019-02-20] MEDS ORDERED: IBUPROFEN 400 MG TABLET (FP) PO PRN (20:11)
[2019-02-20] MEDS ORDERED: METHADONE HCL 10 MG TABLET (FOR DETOX USE ONLY) PO ONE ×2 (20:11→23:00)
[2019-02-20] MEDS ORDERED: MAGNESIUM HYDROX 2400MG/30ML ORAL SUSPENSION 30 ML CUP PO PRN (20:11)
[2019-02-20] MEDS ORDERED: MENTHOL/PHENOL 1 EACH UD MM PRN (20:11)
[2019-02-20] MEDS ORDERED: ACETAMINOPHEN 325 MG TABLET (FP) PO PRN ×2 (20:11)
[2019-02-20] MEDS: THIAMINE HCL 100 MG TABLET (FP) PO SCH (21:33)
[2019-02-20] MEDS: diazePAM 5 MG TABLET PO SCH (22:27)
[2019-02-21] MEDS: NICOTINE POLACRILEX 2 MG GUM BUC PRN ×4 (02:37→21:58)
[2019-02-21] MEDS: diazePAM 5 MG TABLET PO PRN ×3 (02:37→17:53)
[2019-02-21] MEDS: hydrOXYzine PAMOATE 50 MG CAPSULE (FP) PO PRN ×2 (03:38→11:48)
[2019-02-21] MEDS: diazePAM 5 MG TABLET PO SCH ×3 (05:15→21:56)
[2019-02-21] MEDS: METHOCARBAMOL 500 MG TABLET PO PRN ×3 (05:16→23:11)
[2019-02-21] MEDS ORDERED: METHADONE HCL 10 MG TABLET (FOR DETOX USE ONLY) PO ONE (10:00)
--- NOTE | 2019-02-21 10:02 | PN ---
[facility] CIWA - CIWA Score Nausea/Vomitin-Mild Nausea/No Vomiting Muscle Tremors: 3 Anxiety: 4-Mod. Anxious/Guarded Agitation: 4-Moderately Restless Paroxysmal Sweats: 1-Minimal Palms Moist Orientation: 1-Uncertain about Date Tacttile Disturbances: 0-None Auditory Disturbances: 0-None Visual Disturbances: 0-None Headache: 0-None Present CIWA-Ar Total Score: 14 [facility] COWS - Scale Resting Pulse: 1= [place] 81-100 Sweatin= Chills/Flushing Restless Observation: 1= Difficult to Sit Still Pupil Size: 1= Pupils >than Normal Bone or Joint Aches: 1= Mild Discomfort Runny Nose/ Eye Tearin= Nasal Congestion GI Upset > 30mins: 2= Nausea/Diarrhea Tremor Observation of Outstretched Hands: 2= Slight Tremor Visible Yawning Observation: 0= None Anxiety or Irritability: 1=Feels Anxious/Irritable Goose Flesh Skin: 3=Piloerection COWS Score: 14 [facility] Progress Note (SOAP) Subjective: anxiety restlessness tired low energy Objective: 02/21/19 10:01 Vital Signs Temperature 96.8 F L 02/21/19 09:11 Pulse Rate 97 H 02/21/19 09:11 Respiratory Rate 18 02/21/19 09:11 Blood Pressure 110/74 02/21/19 09:11 O2 Sat by Pulse Oximetry (%) 02/21/19 10:01 lab pending Assessment: 02/21/19 10:02 benzo and opiate withdrawal sx Plan: continue detox with valium and methadone
--- NOTE | 2019-02-21 10:06 | EKG ---
Test Reason : Blood Pressure : / mmHG Vent. Rate : 106 BPM Atrial Rate : 106 BPM P-R Int : 132 ms QRS Dur : 088 ms QT Int : 342 ms P-R-T Axes : 069 074 056 degrees QTc Int : 454 ms SINUS TACHYCARDIA NONSPECIFIC T WAVE ABNORMALITY ABNORMAL ECG WHEN COMPARED WITH ECG OF 04-AUG-2017 12:15, T WAVE VARIATION Confirmed by HIREN STRATTON MD ([id number]) on 02/21/2019 10:06:07 AM Referred By: Confirmed By:HIREN STRATTON MD
[2019-02-21 10:23] LABS: HEMATOCRIT 36.1 % (35.4-49); HEMOGLOBIN 12.1 GM/dL (11.7-16.9); MCH 29.2 pg (25.7-33.7); MCHC 33.6 g/dl (32.0-35.9); MEAN CELL VOLUME 86.8 fl (80-96); MEAN PLT VOLUME 8.1 fl (7.5-11.1); PLATELET COUNT 209 K/MM3 (134-434); RBC 4.16 M/mm3 (4.00-5.60); RDW 14.3 % (11.9-15.9); WHITE BLOOD COUNT 6.1 K/mm3 (4.0-10.0)
[2019-02-21] MEDS: PRENATAL VITAMINS W/ FOLIC ACID TABLET (FP) PO SCH (10:23)
[2019-02-21] MEDS: NICOTINE 14 MG/24 HOURS TOPICAL PATCH TD SCH (10:24)
[2019-02-21 10:28] LABS: ALBUMIN 3.9 g/dl (3.4-5.0); ALK PHOS 74 U/L (45-117); ANION GAP 9 MMOL/L (8-16); BILIRUBIN,TOTAL 0.8 mg/dL (0.2-1); BLOOD UREA NITROGEN 11 mg/dL (7-18); CALCIUM 9.1 mg/dL (8.5-10.1); CHLORIDE 105 mmol/L (98-107); CO2 25 mmol/L (21-32); CREATININE 0.9 mg/dL (0.55-1.3); GLUCOSE,RANDOM 98 mg/dL (74-106); POTASSIUM 3.1 mmol/L (3.5-5.1); SGOT/AST 25 U/L (15-37); SGPT/ALT 24 U/L (13-61); SODIUM 139 mmol/L (136-145); TOT PROT 7.8 g/dl (6.4-8.2)
--- NOTE | 2019-02-21 13:37 | CONSULT ---
[facility] Psychiatric Consult - Data Date of interview: 02/21/19 Admission source: [facility] Identifying data: This is one of multiple admissions to [facility] for this 28 y/ o male self-referred for detoxification (heroin, methamphetamine, benzodiazepine). Examined at [address] [place] [address]. Patient is single without children, homeless, unemployed and deprived of financial support. Substance Abuse History: Confirmed by the patient in this session. Details in current [facility] report : Smoking history: Current every day smoker. Have you smoked in the past 12 months: Yes. Aproximately how many cigarettes per day: 10. Hx Chewing Tobacco Use: No. Initiated information on smoking cessation: Yes. 'Breaking Loose' booklet given: 02/20/19. - Substance & Tx. History. Hx Alcohol Use: No. Hx Substance Use: Yes. Substance Use Type: Heroin, Tranquilizers. Hx Substance Use Treatment: Yes. - Substances abused. Heroin. Substance route: Injection. Frequency: Daily. Amount used: 1 BUNDLE. Age of first use: 20. Date of last use: 02/19/19. Crystal meth. Substance route: Smoking. Frequency: 3-6 times per week. Amount used: 1 GRAM. Age of first use: 27. Date of last use: 02/20/19. Alprazolam (Xanax). Substance route: Oral. Frequency: 3-6 times per week. Amount used: 2/2MG. Age of first use: 16. Date of last use: 02/17/19 Medical History: Patient endorses good physical health. Psychiatric History: Patient denies history of psychiatric hospitalizations, suicide attempts or past contact with [employer] care providers. Physical/Sexual Abuse/Trauma History: Denies history of abuse. Additional Comment: Urine drug screen results: MET-Methamphetamine, FEN-Fentanyl , MOP-Opiates, MTD-Methadone, BZO-Benzodiazepines, MDMA-Ecstasy. Noted. Mental Status Exam - Mental Status Exam Alert and Oriented to: Time, Place, Person Cognitive Function: Good Patient Appearance: Well Groomed Mood: Nervous, Withdrawn, Anxious Affect: Mood Congruent, Constricted Patient Behavior: Fatigued, Appropriate, Cooperative Speech Pattern: Clear Voice Loudness: Normal Thought Process: Goal Oriented Thought Disorder: Not Present Hallucinations: Denies Suicidal Ideation: Denies Homicidal Ideation: Denies Insight/Judgement: Poor Sleep: Poorly, Difficulty falling asleep Appetite: Good Muscle strength/Tone: Normal Gait/Station: Normal Psychiatric Findings - Problem List ([place] 1, 2,3) (1) Opioid dependence with withdrawal Current Visit: Yes Status: Acute (2) Sedative, hypnotic or anxiolytic dependence with withdrawal, uncomplicated Current Visit: Yes Status: Acute (3) 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 Current Visit: Yes Status: Chronic (4) Nicotine dependence Current Visit: Yes Status: Chronic Qualifiers: Nicotine product type: cigarettes Substance use status: uncomplicated Qualified Code(s): F17.210 - Nicotine dependence, cigarettes, uncomplicated (5) Drug-induced mood disorder Current Visit: Yes Status: Chronic (6) Insomnia Current Visit: Yes Status: Chronic - Initial Treatment Plan Initial Treatment Plan: Psychoeducation. Support. Sleep hygiene. Detoxification in progress. NA meetings. Benefits of rehabilitative care + enlistment in relapse prevention programs (MAT) : discussed in session. Insomnia is addressed with seroquel 25 mg po hs (patient's specific request). Side effects/benefits discussed. Observation.
[2019-02-21] MEDS: THIAMINE HCL 100 MG TABLET (FP) PO SCH (21:56)
[2019-02-21] MEDS: QUEtiapine FUMARATE 25 MG TABLET (FP) PO SCH (21:56)
[2019-02-22] MEDS: diazePAM 5 MG TABLET PO PRN ×4 (08:36→20:40)
--- NOTE | 2019-02-22 09:52 | PN ---
[facility] CIWA - CIWA Score Nausea/Vomitin-Mild Nausea/No Vomiting Muscle Tremors: 3 Anxiety: 2 Agitation: 2 Paroxysmal Sweats: 1-Minimal Palms Moist Orientation: 1-Uncertain about Date Tacttile Disturbances: 0-None Auditory Disturbances: 0-None Visual Disturbances: 0-None Headache: 1-Very Mild CIWA-Ar Total Score: 11 BHS COWS - Scale Resting Pulse: 1= [place] 81-100 Sweatin= Chills/Flushing Restless Observation: 0= Sits Still Pupil Size: 0= Normal to Room Light Bone or Joint Aches: 1= Mild Discomfort Runny Nose/ Eye Tearin= Nasal Congestion GI Upset > 30mins: 1= Stomach Cramp Tremor Observation of Outstretched Hands: 2= Slight Tremor Visible Yawning Observation: 2= >3x During Session Anxiety or Irritability: 2=Irritable/Anxious Goose Flesh Skin: 0=Smooth Skin COWS Score: 11 [facility] Progress Note (SOAP) Subjective: received information from supervisor winter that an ekg order for 02/21/19 is needed for 0759 am itchy toes fungal feet between toes erythema no bleeding Objective: 02/22/19 12:37 Vital Signs Temperature 97.3 F L 02/22/19 09:13 Pulse Rate 99 H 02/22/19 09:13 Respiratory Rate 18 02/22/19 09:13 Blood Pressure 103/72 02/22/19 09:13 O2 Sat by Pulse Oximetry (%) Laboratory Last Values WBC 6.1 K/mm3 (4.0-10.0) 02/21/19 07:00 RBC 4.16 M/mm3 (4.00-5.60) 02/21/19 07:00 Hgb 12.1 GM/dL (11.7-16.9) 02/21/19 07:00 Hct 36.1 % (35.4-49) D 02/21/19 07:00 MCV 86.8 fl (80-96) 02/21/19 07:00 MCH 29.2 pg (25.7-33.7) 02/21/19 07:00 MCHC 33.6 g/dl (32.0-35.9) 02/21/19 07:00 RDW 14.3 % (11.9-15.9) 02/21/19 07:00 Plt Count 209 K/MM3 (134-434) 02/21/19 07:00 MPV 8.1 fl (7.5-11.1) 02/21/19 07:00 Sodium 139 mmol/L (136-145) 02/21/19 07:00 Potassium 3.1 mmol/L (3.5-5.1) L 02/21/19 07:00 Chloride 105 mmol/L (98-107) 02/21/19 07:00 Carbon Dioxide 25 mmol/L (21-32) 02/21/19 07:00 Anion Gap 9 MMOL/L (8-16) 02/21/19 07:00 BUN 11 mg/dL (7-18) 02/21/19 07:00 Creatinine 0.9 mg/dL (0.55-1.3) 02/21/19 07:00 Creat Clearance w eGFR 102.00 (>60) 02/21/19 07:00 Random Glucose 98 mg/dL (74-106) 02/21/19 07:00 Calcium 9.1 mg/dL (8.5-10.1) 02/21/19 07:00 Total Bilirubin 0.8 mg/dL (0.2-1) 02/21/19 07:00 AST 25 U/L (15-37) 02/21/19 07:00 ALT 24 U/L (13-61) 02/21/19 07:00 Alkaline Phosphatase 74 U/L (45-117) 02/21/19 07:00 Total Protein 7.8 g/dl (6.4-8.2) 02/21/19 07:00 Albumin 3.9 g/dl (3.4-5.0) 02/21/19 07:00 RPR Titer Nonreactive (NONREACTIVE) 02/21/19 07:00 lab noted K+ low Assessment: 02/22/19 12:41 benzo and opiate withdrawal sx Plan: continue detox
[2019-02-22] MEDS ORDERED: METHADONE HCL 10 MG TABLET (FOR DETOX USE ONLY) PO ONE (10:00)
[2019-02-22] MEDS: PRENATAL VITAMINS W/ FOLIC ACID TABLET (FP) PO SCH (10:14)
[2019-02-22] MEDS: NICOTINE 14 MG/24 HOURS TOPICAL PATCH TD SCH (10:15)
[2019-02-22] MEDS: diazePAM 5 MG TABLET PO SCH ×2 (10:15→22:18)
--- NOTE | 2019-02-22 11:41 | EKG ---
Test Reason : Blood Pressure : / mmHG Vent. Rate : 086 BPM Atrial Rate : 086 BPM P-R Int : 144 ms QRS Dur : 098 ms QT Int : 370 ms P-R-T Axes : 060 069 053 degrees QTc Int : 442 ms NORMAL SINUS RHYTHM NORMAL ECG WHEN COMPARED WITH ECG OF 20-FEB-2019 19:43, NONSPECIFIC T WAVE ABNORMALITY NO LONGER EVIDENT IN LATERAL LEADS Confirmed by Mitch Espino MD ([id number]) on 02/22/2019 11:40:48 AM Referred By: NETTIE KIM Confirmed By:Mitch Espino MD
[2019-02-22] MEDS: NICOTINE POLACRILEX 2 MG GUM BUC PRN ×3 (12:20→20:37)
[2019-02-22] MEDS: CLOTRIMAZOLE 1% CREAM 15 GM TUBE TP SCH ×2 (14:03→23:15)
[2019-02-22] MEDS: POTASSIUM CHLORIDE ORAL LIQUID 20 MEQ/15 ML PO SCH ×2 (14:04→17:56)
[2019-02-22] MEDS: METHOCARBAMOL 500 MG TABLET PO PRN ×2 (16:32→22:18)
[2019-02-22] MEDS: QUEtiapine FUMARATE 25 MG TABLET (FP) PO SCH (22:18)
[2019-02-22] MEDS: THIAMINE HCL 100 MG TABLET (FP) PO SCH (22:18)
[2019-02-23] MEDS: NICOTINE POLACRILEX 2 MG GUM BUC PRN ×5 (05:27→18:30)
[2019-02-23] MEDS: METHOCARBAMOL 500 MG TABLET PO PRN ×3 (05:29→22:22)
[2019-02-23] MEDS ORDERED: diazePAM 5 MG TABLET PO SCH (06:00)
[2019-02-23] MEDS: diazePAM 5 MG TABLET PO PRN ×3 (08:41→17:28)
[2019-02-23] MEDS ORDERED: METHADONE HCL 10 MG TABLET (FOR DETOX USE ONLY) PO ONE (10:00)
[2019-02-23] MEDS: CLOTRIMAZOLE 1% CREAM 15 GM TUBE TP SCH ×2 (10:19→22:23)
[2019-02-23] MEDS: NICOTINE 14 MG/24 HOURS TOPICAL PATCH TD SCH (10:19)
[2019-02-23] MEDS: PRENATAL VITAMINS W/ FOLIC ACID TABLET (FP) PO SCH (10:20)
--- NOTE | 2019-02-23 15:22 | PN ---
S CIWA - CIWA Score Nausea/Vomitin-Mild Nausea/No Vomiting Muscle Tremors: 2 Anxiety: 2 Agitation: 2 Paroxysmal Sweats: No Perspiration Orientation: 0-Oriented Tacttile Disturbances: 0-None Auditory Disturbances: 0-None Visual Disturbances: 0-None Headache: 0-None Present CIWA-Ar Total Score: 7 BHS COWS - Scale Resting Pulse: 1= [place] 81-100 Sweatin= Chills/Flushing Restless Observation: 0= Sits Still Pupil Size: 0= Normal to Room Light Bone or Joint Aches: 1= Mild Discomfort Runny Nose/ Eye Tearin= Nasal Congestion GI Upset > 30mins: 1= Stomach Cramp Tremor Observation of Outstretched Hands: 1= Tremor [place], Not Seen Yawning Observation: 0= None Anxiety or Irritability: 1=Feels Anxious/Irritable Goose Flesh Skin: 0=Smooth Skin COWS Score: 7 S Progress Note (SOAP) Subjective: feeling better today discuss aftercare with staff Objective: 02/23/19 15:13 Vital Signs Temperature 99.8 F H 02/23/19 13:31 Pulse Rate 89 02/23/19 13:31 Respiratory Rate 18 02/23/19 13:31 Blood Pressure 106/70 02/23/19 13:31 O2 Sat by Pulse Oximetry (%) Laboratory Last Values WBC 6.1 K/mm3 (4.0-10.0) 02/21/19 07:00 RBC 4.16 M/mm3 (4.00-5.60) 02/21/19 07:00 Hgb 12.1 GM/dL (11.7-16.9) 02/21/19 07:00 Hct 36.1 % (35.4-49) D 02/21/19 07:00 MCV 86.8 fl (80-96) 02/21/19 07:00 MCH 29.2 pg (25.7-33.7) 02/21/19 07:00 MCHC 33.6 g/dl (32.0-35.9) 02/21/19 07:00 RDW 14.3 % (11.9-15.9) 02/21/19 07:00 Plt Count 209 K/MM3 (134-434) 02/21/19 07:00 MPV 8.1 fl (7.5-11.1) 02/21/19 07:00 Sodium 139 mmol/L (136-145) 02/21/19 07:00 Potassium 3.7 mmol/L (3.5-5.1) 02/23/19 07:30 Chloride 105 mmol/L (98-107) 02/21/19 07:00 Carbon Dioxide 25 mmol/L (21-32) 02/21/19 07:00 Anion Gap 9 MMOL/L (8-16) 02/21/19 07:00 BUN 11 mg/dL (7-18) 02/21/19 07:00 Creatinine 0.9 mg/dL (0.55-1.3) 02/21/19 07:00 Creat Clearance w eGFR 102.00 (>60) 02/21/19 07:00 Random Glucose 98 mg/dL (74-106) 02/21/19 07:00 Calcium 9.1 mg/dL (8.5-10.1) 02/21/19 07:00 Total Bilirubin 0.8 mg/dL (0.2-1) 02/21/19 07:00 AST 25 U/L (15-37) 02/21/19 07:00 ALT 24 U/L (13-61) 02/21/19 07:00 Alkaline Phosphatase 74 U/L (45-117) 02/21/19 07:00 Total Protein 7.8 g/dl (6.4-8.2) 02/21/19 07:00 Albumin 3.9 g/dl (3.4-5.0) 02/21/19 07:00 RPR Titer Nonreactive (NONREACTIVE) 02/21/19 07:00 lab noted Assessment: 02/23/19 15:13 withdrawal sx Plan: continue detox
[2019-02-23] MEDS: hydrOXYzine PAMOATE 50 MG CAPSULE (FP) PO PRN (19:00)
[2019-02-23] MEDS: QUEtiapine FUMARATE 25 MG TABLET (FP) PO SCH (22:22)
[2019-02-23] MEDS: THIAMINE HCL 100 MG TABLET (FP) PO SCH (22:22)
[2019-02-24] MEDS: METHOCARBAMOL 500 MG TABLET PO PRN (05:20)
[2019-02-24] MEDS ORDERED: METHADONE HCL 5 MG TABLET (FOR DETOX USE ONLY) PO ONE (06:00)
--- NOTE | 2019-02-24 08:47 | DS ---
[facility] Detox Discharge Summary Admission Date: 02/20/19 Discharge Date: 02/24/19 - History Present History: Opioid Dependence, Sedative Dependence Additional Comments: 28 years old male admitted on 02/20/19 for benzo and opiate withdrawal stabilization completed detox regimen after[facility] - Physical Exam Results Vital Signs: Vital Signs Temperature 97.6 F 02/24/19 06:26 Pulse Rate 73 02/24/19 06:26 Respiratory Rate 18 02/24/19 06:26 Blood Pressure 108/64 02/24/19 06:26 O2 Sat by Pulse Oximetry (%) Pertinent Admission Physical Exam Findings: benzo and opiate withdrawal sx Laboratory Last Values WBC 6.1 K/mm3 (4.0-10.0) 02/21/19 07:00 RBC 4.16 M/mm3 (4.00-5.60) 02/21/19 07:00 Hgb 12.1 GM/dL (11.7-16.9) 02/21/19 07:00 Hct 36.1 % (35.4-49) D 02/21/19 07:00 MCV 86.8 fl (80-96) 02/21/19 07:00 MCH 29.2 pg (25.7-33.7) 02/21/19 07:00 MCHC 33.6 g/dl (32.0-35.9) 02/21/19 07:00 RDW 14.3 % (11.9-15.9) 02/21/19 07:00 Plt Count 209 K/MM3 (134-434) 02/21/19 07:00 MPV 8.1 fl (7.5-11.1) 02/21/19 07:00 Sodium 139 mmol/L (136-145) 02/21/19 07:00 Potassium 3.7 mmol/L (3.5-5.1) 02/23/19 07:30 Chloride 105 mmol/L (98-107) 02/21/19 07:00 Carbon Dioxide 25 mmol/L (21-32) 02/21/19 07:00 Anion Gap 9 MMOL/L (8-16) 02/21/19 07:00 BUN 11 mg/dL (7-18) 02/21/19 07:00 Creatinine 0.9 mg/dL (0.55-1.3) 02/21/19 07:00 Creat Clearance w eGFR 102.00 (>60) 02/21/19 07:00 Random Glucose 98 mg/dL (74-106) 02/21/19 07:00 Calcium 9.1 mg/dL (8.5-10.1) 02/21/19 07:00 Total Bilirubin 0.8 mg/dL (0.2-1) 02/21/19 07:00 AST 25 U/L (15-37) 02/21/19 07:00 ALT 24 U/L (13-61) 02/21/19 07:00 Alkaline Phosphatase 74 U/L (45-117) 02/21/19 07:00 Total Protein 7.8 g/dl (6.4-8.2) 02/21/19 07:00 Albumin 3.9 g/dl (3.4-5.0) 02/21/19 07:00 RPR Titer Nonreactive (NONREACTIVE) 02/21/19 07:00 lab noted - Treatment Hospital Course: Detox Protocol Followed, Detoxed Safely, Responded well, Discharged Condition Good, Rehab Referral Accepted Patient has Accepted a Rehab Referral to: [facility] - Medication Discharge Medications: Ambulatory Orders NK [No Known Home Medication] 05/28/17 - Diagnosis (1) Opioid dependence with withdrawal Current Visit: Yes Status: Acute (2) Sedative, hypnotic or anxiolytic dependence with withdrawal, uncomplicated Current Visit: Yes Status: Acute (3) Nicotine dependence Current Visit: Yes Status: Acute Qualifiers: Nicotine product type: cigarettes Substance use status: in withdrawal Qualified Code(s): F17.213 - Nicotine dependence, cigarettes, with withdrawal - AMA Did Patient Leave Against Medical Advice: No
[2019-02-24] MEDS: CLOTRIMAZOLE 1% CREAM 15 GM TUBE TP SCH (10:20)
[2019-02-24] MEDS: PRENATAL VITAMINS W/ FOLIC ACID TABLET (FP) PO SCH (10:20)
[2019-02-24] MEDS: NICOTINE 14 MG/24 HOURS TOPICAL PATCH TD SCH (10:20)
[2019-02-24 13:51] VITALS: BP 128/84; PULSE 118; TEMP 97.8
== END 2019-02-24 15:18 | disposition other institution (70) | DRG 773 ==
LOC: YASAS 18:26 → Y3N 21:01
PROVIDERS: ADMIT Surgery; ATTEND Surgery
PROC: HZ2ZZZZ Detoxification Services for Substance Abuse Treatment (ICD-10-PCS; principal; 2019-02-20)
DX: F11.23 Opioid dependence with withdrawal (principal); F13.230 Sedative, hypnotic or anxiolytic dependence with withdrawal, uncomplicated; F15.20 Other stimulant dependence, uncomplicated; F17.213 Nicotine dependence, cigarettes, with withdrawal; F19.24 Other psychoactive substance dependence with psychoactive substance-induced mood disorder; G47.00 Insomnia, unspecified; B35.3 Tinea pedis; Z86.19 Personal history of other infectious and parasitic diseases; Z59.0 Homelessness
CPT/HCPCS: 36415; 80053; 84132; 85027; 86593; 93005; 93010; J0735

== ENCOUNTER 2019-02-24 15:40 | Inpatient (IN) | payer OTHER ==
--- NOTE | 2019-02-24 14:49 | HP ---
[facility] Rehab Assess/Revision - Admission History Admitted to Rehab from: [facility] Date of Admission to Rehab: 02/24/19 - Findings Detox History & Physical reviewed: Yes Concur with findings: Yes Comments/Additional Findings: transferred from detox to rehab admission as per protocol Inpatient Rehab Admission - Rehab Decision to Admit Inpatient rehab admission?: Yes - Initial Determination Are CD services needed?: Yes Free of communicable disease: Yes Not in need of hospitalization: Yes - Rehab Admission Criteria Previous failed treatment: Yes Poor recovery environment: Yes Comorbidities: Yes Lacks judgement: No Patient is meeting Inpatient Rehab admission criteria:: Yes
[~2019-02-24 15:40] MED LIST: ACETAMINOPHEN 325 MG TABLET (FP) PO PRN; IBUPROFEN 400 MG TABLET (FP) PO PRN; LOPERAMIDE HCL 2 MG CAPSULE PO PRN; MAG HYDROX/AL HYDROX/SIMETH 30 ML UNIT-DOSE CUP PO PRN; MAGNESIUM CITRATE 300 ML BOTTLE PO PRN; MAGNESIUM HYDROX 2400MG/30ML ORAL SUSPENSION 30 ML CUP PO PRN; MENTHOL/PHENOL 1 EACH UD MM PRN; NICOTINE POLACRILEX 2 MG GUM BC PRN; P-EPHED 60MG/TRIPROLIDI 2.5MG TABLET PO PRN; guaiFENesin 200 MG/10 ML 10 ML UNIT-DOSE CUPS PO PRN
[2019-02-24] MEDS ORDERED: NICOTINE 14 MG/24 HOURS TOPICAL PATCH TD PRN (16:00)
[2019-02-24] MEDS: THIAMINE HCL 100 MG TABLET (FP) PO SCH (21:55)
[2019-02-24] MEDS ORDERED: MELATONIN 5 MG TABLETS PO PRN (22:00)
[2019-02-25] MEDS: PRENATAL VITAMINS W/ FOLIC ACID TABLET (FP) PO SCH (10:30)
[2019-02-25] MEDS ORDERED: ONDANSETRON *ODT* 4 MG TABLET SL PRN (12:12)
--- NOTE | 2019-02-25 12:24 | PN ---
[facility] Progress Note Note: PT IS A NEW ADMIT TO REHAB ON 02/24/[address] PT REPORTS WITHDRAWAL SX OF HOT/COLD CHILLS, IRRITABILITY AND DIFFICULTY SLEEPING,MUSCLE ACHES/SPASMS, NAUSEA AND (-)BM. PT REQUESTING FOR PSYCH EVAL STATING RACING THOUGHTS BECAUSE "A LOT OF SH _T HAPPENED BEFORE I GOT HERE". PT ALSO REPORTED THAT HE HAD BEEN ON PROZAC AT ONE TIME AND LEXAPRO WITH DEPAKOTE AT ANOTHER TIME WHILE INPATIENT ADMISSION. PT DENIES S/I. OOB AMBULATING WITH STEADY GAIT BUT APPEARS FATIGUED. Vital Signs 02/25/19 07:35 Temperature 97.7 F Pulse Rate 84 Respiratory 18 Rate Blood Pressure 119/77 PLAN:D/W PT TO INCREASE PO FLUIDS WILL GIVE CLONIDINE 0.1 MG PO BID PRN FLEXERIL 10 MG PO TID PRN ZOFRAN ODT 8 MG SL Q8H MOM PRN FOR CONSTIPATION COLACE 100 MG PO BID FOLLOW UP WITH PSYCH CONSULT DIRECTED.
[2019-02-25] MEDS ORDERED: DOCUSATE SODIUM 100 MG CAPSULE (FP) PO ONE (12:26)
[2019-02-25] MEDS: cloNIDine HCL 0.1 MG TABLET PO PRN ×2 (12:39→22:09)
[2019-02-25] MEDS: CYCLOBENZAPRINE HCL 10 MG TABLET (FP) PO PRN ×2 (12:39→22:08)
--- NOTE | 2019-02-25 14:36 | PN ---
[facility] Progress Note Note: Psychiatry Attending's note : Called to enter medications orders. Patient is known to this typewriter repairer. From [address]. On seroquel 25 mg po hs. Resumed.
--- NOTE | 2019-02-25 14:39 | CONSULT ---
[facility] Psychiatric Consult - Data Date of interview: 02/25/19 Admission source: Transfer from [address] [place] [address]. Identifying data: Refer to note of
[2019-02-25] MEDS ORDERED: cloNIDine HCL 0.1 MG TABLET PO SCH (22:00)
[2019-02-25] MEDS: DOCUSATE SODIUM 100 MG CAPSULE (FP) PO SCH (22:08)
[2019-02-25] MEDS: QUEtiapine FUMARATE 25 MG TABLET (FP) PO SCH (22:08)
[2019-02-25] MEDS: THIAMINE HCL 100 MG TABLET (FP) PO SCH (22:09)
[2019-02-26] MEDS: DOCUSATE SODIUM 100 MG CAPSULE (FP) PO SCH ×2 (09:52→21:40)
[2019-02-26] MEDS: PRENATAL VITAMINS W/ FOLIC ACID TABLET (FP) PO SCH (09:52)
[2019-02-26] MEDS: CYCLOBENZAPRINE HCL 10 MG TABLET (FP) PO PRN ×2 (09:53→21:40)
[2019-02-26] MEDS: cloNIDine HCL 0.1 MG TABLET PO PRN ×2 (15:16→21:40)
[2019-02-26] MEDS: THIAMINE HCL 100 MG TABLET (FP) PO SCH (21:39)
[2019-02-26] MEDS: QUEtiapine FUMARATE 25 MG TABLET (FP) PO SCH (21:40)
[2019-02-27] MEDS: CYCLOBENZAPRINE HCL 10 MG TABLET (FP) PO PRN ×3 (06:37→21:37)
[2019-02-27] MEDS: hydrOXYzine PAMOATE 50 MG CAPSULE (FP) PO PRN ×2 (06:37→12:40)
[2019-02-27] MEDS: DOCUSATE SODIUM 100 MG CAPSULE (FP) PO SCH ×2 (10:11→21:37)
[2019-02-27] MEDS: PRENATAL VITAMINS W/ FOLIC ACID TABLET (FP) PO SCH (10:11)
[2019-02-27] MEDS: cloNIDine HCL 0.1 MG TABLET PO PRN ×2 (12:40→21:37)
[2019-02-27] MEDS: THIAMINE HCL 100 MG TABLET (FP) PO SCH (21:37)
[2019-02-27] MEDS: QUEtiapine FUMARATE 25 MG TABLET (FP) PO SCH (21:37)
[2019-02-28 05:50] VITALS: BP 125/72; PULSE 78; TEMP 98.2
[2019-02-28] MEDS: CYCLOBENZAPRINE HCL 10 MG TABLET (FP) PO PRN ×2 (06:35→14:42)
[2019-02-28] MEDS: hydrOXYzine PAMOATE 50 MG CAPSULE (FP) PO PRN ×2 (06:35→12:23)
[2019-02-28] MEDS: DOCUSATE SODIUM 100 MG CAPSULE (FP) PO SCH (10:48)
[2019-02-28] MEDS: PRENATAL VITAMINS W/ FOLIC ACID TABLET (FP) PO SCH (10:48)
[2019-02-28] MEDS: cloNIDine HCL 0.1 MG TABLET PO PRN (12:23)
--- NOTE | 2019-02-28 13:35 | PN ---
[facility] COWS - Scale Resting Pulse: 0= [place] 80 or Below Sweatin= Chills/Flushing Restless Observation: 3= Extraneous Movement Pupil Size: 0= Normal to Room Light Bone or Joint Aches: 4=Acute Joint/Muscle Pain Runny Nose/ Eye Tearin= Nasal Congestion GI Upset > 30mins: 2= Nausea/Diarrhea (nausea) Tremor Observation of Outstretched Hands: 0= None Yawning Observation: 1= 1-2x During Session Anxiety or Irritability: 2=Irritable/Anxious Goose Flesh Skin: 0=Smooth Skin COWS Score: 14 [facility] Progress Note (SOAP) Subjective: PT C/O CRAVINGS AND WITHDRAWAL SX-NAUSEA, HOT/COLD CHILLS, NASAL CONGESTIONS, INTERMITTENT SLEEP/ NIGHTMARES, MUSCLE ACHES AND CRAMPS. REQUESTING TO GET BACK ON SUBOXONE. REPORTS HE HAD BEEN ON METHADONE AT [facility] OVER A YEAR AGO AND GOT OFF THEN WAS ON SUBOXONE FOR 3 MONTHS AND STOPPED LAST SUMMER . REPORTS HE GOT STARTED WHILE IN [employer] LAST YEAR. 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 PT COMPLETED DETOX HERE ON [address] [place] [address] ON 02/24/19 AND WAS REFERRED TO [address] [place] [address] REHAB SAME DAY. Others' Prescriptions Patient Name: Jose L Ashley Date: 1990 Address: [address] [place] [address] Sex: Male Rx Written Rx Dispensed Drug Quantity Days Supply Prescriber Name 05/03/2018 05/03/2018 suboxone 4 mg-1 mg sl film 30 30 Morgan Richardson MD 03/29/2018 03/29/2018 suboxone 4 mg-1 mg sl film 60 30 Malik Cason MD Objective: 02/28/19 13:36 Vital Signs - 24 hr 02/27/19 02/28/19 02/28/19 21:40 03:30 05:49 Temperature 98.2 F Pulse Rate 89 78 Respiratory 18 18 Rate Blood Pressure 123/71 125/72 Home Medications Medication Instructions Recorded NK [No Known Home Medication] 05/28/17 Active Medications Generic Name Dose Route Start Last Admin Trade Name Freq PRN Reason Stop Dose Admin Acetaminophen 650 mg 02/24/19 14:49 Tylenol - PO Q4H PRN FEVER Al Hydroxide/Mg Hydroxide 30 ml 02/24/19 14:49 Mylanta Oral Suspension - PO Q6H PRN DYSPEPSIA Clonidine 0.1 mg 02/25/19 12:15 02/28/19 12:23 Catapres - PO 0.1 mg BID PRN Administration WITHDRAWAL(CONT SUBST) Cyclobenzaprine HCl 10 mg 02/25/19 12:12 02/28/19 06:35 Flexeril - PO 10 mg TID PRN Administration MUSCLE SPASMS Docusate Sodium 100 mg 02/25/19 22:00 02/28/19 10:48 Colace - PO 100 mg BID ANTHONY Administration Eucalyptus/Menthol/Phenol/Sorbitol 1 each 02/24/19 14:49 Cepastat Lozenge - MM Q4H PRN SORE THROAT Guaifenesin 10 ml 02/24/19 14:49 Robitussin - PO Q6H PRN COUGH Hydroxyzine Pamoate 50 mg 02/25/19 12:29 02/28/19 12:23 Vistaril - PO 50 mg Q4H PRN Administration FOR ITCHING Ibuprofen 400 mg 02/24/19 14:49 Motrin - PO Q6H PRN Pain level 4-6 Loperamide HCl 4 mg 02/24/19 14:49 Imodium - PO Q6H PRN DIARRHEA Magnesium Citrate 300 ml 02/24/19 14:49 Citroma - PO Q48H PRN CONSTIPATION Magnesium Hydroxide 30 ml 02/24/19 14:49 Milk Of Magnesia - PO DAILY PRN CONSTIPATION Melatonin 5 mg 02/24/19 22:00 02/26/19 21:39 Melatonin PO 5 mg HS PRN Administration INSOMNIA Nicotine 14 mg 02/24/19 16:00 Nicoderm Patch - TD DAILY PRN NICOTINE REPLACEMENT RX Nicotine Polacrilex 2 mg 02/24/19 14:49 Nicorette Gum - BC Q2H PRN NICOTINE REPLACEMENT RX Ondansetron HCl 8 mg 02/25/19 12:12 Zofran Odt - SL Q8H PRN NAUSEA AND/OR VOMITING Multivit/Folic Acid/Iron 1 tab 02/25/19 10:00 02/28/19 10:48 Vitamins (Sjr) - PO 1 tab DAILY ANTHONY Administration Pseudoephedrine/Triprolidine 1 combo 02/24/19 14:49 Actifed - PO TID PRN NASAL CONGESTION Quetiapine Fumarate 25 mg 02/25/19 22:00 02/27/19 21:37 Seroquel - PO 25 mg HS ANTHONY Administration Thiamine HCl 100 mg 02/24/19 22:00 02/27/19 21:37 Vitamin B1 - PO 100 mg HS ANTHONY Administration Assessment: 02/28/19 13:36 A:CRAVINGS RESIDUAL WITHDRAWAL SX Plan: D/W PT TO MEET WITH COUNSELOR TO SET UP AFTERCARE PROGRAM AFTER REHAB UDS TODAY PT SIGNED CONSENT TO RESTART SUBOXONE 4 MG/1 MG SL DAILY AFTER UDS NEGATIVE RESULT.
--- NOTE | 2019-02-28 17:26 | PN ---
[facility] Progress Note Note: DISCHARGE NOTE: AMA Patient seen earlier by [employer] and orders were created to facilitate patients' comfort level and rehab progression. At that point patient agreed to stay. Patient now insists on leaving and refused to wait to be seen by this Provider. Vital Signs - 24 hr 02/28/19 02/28/19 03:30 05:49 Temperature 98.2 F Pulse Rate 78 Respiratory 18 18 Rate Blood Pressure 125/72 Admission and Discharge Diagnosis: (1) Early remission Opioid Use Disorder (2) Nicotine use disorder - (3) Early remission Sedative, hypnotic or anxiolytic use disorder (4) Methylenedioxymethamphetamine (MDMA) dependence
[2019-03-01] MEDS ORDERED: NICOTINE 14 MG/24 HOURS TOPICAL PATCH TD SCH (10:00)
== END 2019-02-28 16:55 | disposition left against medical advice (07) | DRG 770 ==
LOC: YASAS 15:40 → Y5N 15:41
PROVIDERS: ADMIT Neuromusculoskeletal Medicine & OMM; ATTEND Neuromusculoskeletal Medicine & OMM
PROC: HZ42ZZZ Group Counseling for Substance Abuse Treatment, Cognitive-Behavioral (ICD-10-PCS; principal; 2019-02-24)
DX: F11.23 Opioid dependence with withdrawal (principal); F13.230 Sedative, hypnotic or anxiolytic dependence with withdrawal, uncomplicated; F16.20 Hallucinogen dependence, uncomplicated; F17.210 Nicotine dependence, cigarettes, uncomplicated; Z91.19 Patient's noncompliance with other medical treatment and regimen; Z87.438 Personal history of other diseases of male genital organs
CPT/HCPCS: J0735

== ENCOUNTER 2023-01-07 16:18 | Inpatient (IN) | payer OTHER ==
[2023-01-07 17:06] VITALS: BMI 31.0
[2023-01-07] MEDS ORDERED: ONDANSETRON *ODT* 4 MG TABLET SL PRN (17:37)
[2023-01-07] MEDS ORDERED: NALOXONE HCL (KLOXXADO) 8 MG SPRAY NS PRN (17:37)
[2023-01-07] MEDS ORDERED: P-EPHED 60MG/TRIPROLIDI 2.5MG TABLET PO PRN (17:37)
[2023-01-07] MEDS ORDERED: NALOXONE HCL 0.4 MG/ML VIAL IM PRN (17:37)
[2023-01-07] MEDS ORDERED: IBUPROFEN 400 MG TABLET (FP) PO PRN (17:37)
[2023-01-07] MEDS ORDERED: NICOTINE 10 MG CARTRIDGE (INHALER) IH PRN (17:37)
[2023-01-07] MEDS ORDERED: POLYETHYLENE GLYCOL (HEALTHYLAX) 3350 17 GM PACKET PO PRN (17:37)
[2023-01-07] MEDS ORDERED: guaiFENesin 600 MG TABLET.ER (FP) PO PRN (17:37)
[2023-01-07] MEDS ORDERED: LOPERAMIDE HCL 2 MG CAPSULE PO PRN (17:37)
[2023-01-07] MEDS ORDERED: IBUPROFEN 600 MG TABLET (FP) PO PRN (17:37)
[2023-01-07] MEDS ORDERED: MELATONIN 5 MG TABLETS PO PRN (17:37)
[2023-01-07] MEDS ORDERED: BISMUTH SUBSALICYLATE 524 MG/30 ML PO PRN (17:37)
[2023-01-07] MEDS ORDERED: MAG HYDROX/AL HYDROX/SIMETH 30 ML UNIT-DOSE CUP PO PRN (17:37)
[2023-01-07] MEDS ORDERED: DICYCLOMINE HCL 10 MG CAPSULE PO PRN (17:37)
[2023-01-07] MEDS ORDERED: BENZOCAINE/MENTHOL (CHLORASEPTIC ) LOZENGE MM PRN (17:37)
[2023-01-07] MEDS ORDERED: ACETAMINOPHEN 325 MG TABLET (FP) PO PRN ×2 (17:37)
[2023-01-07] MEDS ORDERED: BENZONATATE 200 MG CAPSULE PO PRN (17:37)
[2023-01-07] MEDS ORDERED: MAGNESIUM HYDROX 2400MG/30ML ORAL SUSPENSION 30 ML CUP PO PRN (17:37)
[2023-01-07] MEDS ORDERED: diazePAM 5 MG TABLET PO ONE (17:40)
[2023-01-07] MEDS ORDERED: METOPROLOL TARTRATE 25 MG TABLET (FP) PO ONE (17:41)
[2023-01-07] MEDS ORDERED: diazePAM 5 MG TABLET ONE (18:20)
[2023-01-07] MEDS ORDERED: METOPROLOL TARTRATE 25 MG TABLET (FP) ONE (18:21)
[2023-01-07] MEDS: THIAMINE HCL 100 MG TABLET (FP) PO SCH (22:27)
[2023-01-07] MEDS: METHOCARBAMOL 500 MG TABLET PO PRN (22:27)
[2023-01-07] MEDS: diazePAM 5 MG TABLET PO SCH (22:27)
[2023-01-08] MEDS: diazePAM 5 MG TABLET PO SCH ×4 (05:41→22:40)
[2023-01-08] MEDS ORDERED: methaDONE HCL 10 MG TABLET (FOR DETOX USE ONLY) PO ONE (10:00)
[2023-01-08] MEDS: PRENATAL VITAMINS W/ FOLIC ACID TABLET (FP) PO SCH (10:21)
[2023-01-08] MEDS: NICOTINE 14 MG/24 HOURS TOPICAL PATCH TD SCH (10:22)
[2023-01-08 11:07] LABS: HEMATOCRIT 37.8 % (35.4-49); HEMOGLOBIN 12.9 GM/dL (11.7-16.9); MCH 28.2 pg (25.7-33.7); MEAN PLT VOLUME 8.1 fl (7.5-11.1); PLATELET COUNT 197 10^3/uL (134-434); RBC 4.56 M/mm3 (4.00-5.60); RDW 13.8 % (11.9-15.9); WHITE BLOOD COUNT 7.7 K/mm3 (4.0-10.0)
[2023-01-08 11:20] LABS: ALBUMIN 3.8 g/dl (3.4-5.0); CALCIUM 9.3 mg/dL (8.5-10.1)
[2023-01-08 11:23] LABS: CREATININE 0.8 mg/dL (0.55-1.3)
[2023-01-08 11:25] LABS: BILIRUBIN,TOTAL 0.6 mg/dL (0.2-1); TOT PROT 7.3 g/dl (6.4-8.2)
[2023-01-08] MEDS: cloNIDine HCL 0.1 MG TABLET PO PRN (11:32)
[2023-01-08] MEDS: hydrOXYzine PAMOATE 25 MG CAPSULE (FP) PO PRN (11:33)
[2023-01-08] MEDS: METHOCARBAMOL 500 MG TABLET PO PRN (11:34)
[2023-01-08 11:39] LABS: BLOOD UREA NITROGEN 11.5 mg/dL (7-18)
[2023-01-08] MEDS: diazePAM 5 MG TABLET PO PRN (12:33)
[2023-01-08] MEDS: THIAMINE HCL 100 MG TABLET (FP) PO SCH (22:38)
[2023-01-08] MEDS: SUVOREXANT 10 MG TABLET PO PRN (22:40)
[2023-01-09] MEDS: diazePAM 5 MG TABLET PO SCH ×3 (05:41→22:39)
[2023-01-09] MEDS: diazePAM 5 MG TABLET PO PRN ×3 (08:01→19:02)
[2023-01-09] MEDS: PRENATAL VITAMINS W/ FOLIC ACID TABLET (FP) PO SCH (10:30)
[2023-01-09] MEDS: NICOTINE 14 MG/24 HOURS TOPICAL PATCH TD SCH (10:31)
[2023-01-09] MEDS: hydrOXYzine PAMOATE 25 MG CAPSULE (FP) PO PRN (22:37)
[2023-01-09] MEDS: METHOCARBAMOL 500 MG TABLET PO PRN (22:37)
[2023-01-09] MEDS: SUVOREXANT 10 MG TABLET PO PRN (22:39)
[2023-01-09] MEDS: THIAMINE HCL 100 MG TABLET (FP) PO SCH (22:39)
[2023-01-10] MEDS: diazePAM 5 MG TABLET PO SCH ×2 (05:46→19:05)
[2023-01-10] MEDS ORDERED: methaDONE HCL 10 MG TABLET (FOR DETOX USE ONLY) PO ONE (10:00)
[2023-01-10] MEDS: PRENATAL VITAMINS W/ FOLIC ACID TABLET (FP) PO SCH (10:20)
[2023-01-10] MEDS: NICOTINE 14 MG/24 HOURS TOPICAL PATCH TD SCH (10:20)
[2023-01-10] MEDS: diazePAM 5 MG TABLET PO PRN ×2 (10:22→15:20)
[2023-01-10] MEDS: SUVOREXANT 10 MG TABLET PO PRN (22:01)
[2023-01-10] MEDS: cloNIDine HCL 0.1 MG TABLET PO PRN (22:01)
[2023-01-10] MEDS: hydrOXYzine PAMOATE 25 MG CAPSULE (FP) PO PRN (22:01)
[2023-01-10] MEDS: THIAMINE HCL 100 MG TABLET (FP) PO SCH (22:01)
[2023-01-10] MEDS: METHOCARBAMOL 500 MG TABLET PO PRN (22:01)
[2023-01-11] MEDS ORDERED: diazePAM 5 MG TABLET PO ONE (06:00)
[2023-01-11] MEDS: PRENATAL VITAMINS W/ FOLIC ACID TABLET (FP) PO SCH (10:14)
[2023-01-11] MEDS: NICOTINE 14 MG/24 HOURS TOPICAL PATCH TD SCH (10:15)
[2023-01-11] MEDS: METHOCARBAMOL 500 MG TABLET PO PRN (12:30)
[2023-01-11 12:54] VITALS: BP 111/74; PULSE 89; RESP 16; TEMP 98.6
[2023-01-11] MEDS ORDERED: SUVOREXANT 10 MG TABLET PO PRN (22:00)
[2023-01-12] MEDS ORDERED: methaDONE HCL 10 MG TABLET (FOR DETOX USE ONLY) PO ONE (10:00)
== END 2023-01-11 13:42 | disposition left against medical advice (07) | DRG 770 ==
LOC: YASAS 16:18 → Y3N 18:02
PROVIDERS: ADMIT Allergy & Immunology; ATTEND Surgery
PROC: HZ2ZZZZ Detoxification Services for Substance Abuse Treatment (ICD-10-PCS; principal; 2023-01-07)
DX: F11.23 Opioid dependence with withdrawal (principal); F10.230 Alcohol dependence with withdrawal, uncomplicated; F13.20 Sedative, hypnotic or anxiolytic dependence, uncomplicated; F14.20 Cocaine dependence, uncomplicated; F15.10 Other stimulant abuse, uncomplicated; F12.10 Cannabis abuse, uncomplicated; F17.210 Nicotine dependence, cigarettes, uncomplicated; F19.282 Other psychoactive substance dependence with psychoactive substance-induced sleep disorder; F19.24 Other psychoactive substance dependence with psychoactive substance-induced mood disorder; Z56.0 Unemployment, unspecified; Z59.00 Homelessness unspecified
CPT/HCPCS: 36415; 80053; 85027; 86780; C9803-CS; U0003; U0005

== ENCOUNTER 2023-02-11 14:25 | Inpatient (IN) | payer OTHER ==
[2023-02-11 15:07] VITALS: BMI 31.8
[2023-02-11] MEDS ORDERED: methaDONE HCL 10 MG TABLET (FOR DETOX USE ONLY) PO ONE ×2 (16:30→17:45)
[2023-02-11] MEDS ORDERED: MAGNESIUM HYDROX 2400MG/30ML ORAL SUSPENSION 30 ML CUP PO PRN (16:30)
[2023-02-11] MEDS ORDERED: POLYETHYLENE GLYCOL (HEALTHYLAX) 3350 17 GM PACKET PO PRN (16:30)
[2023-02-11] MEDS ORDERED: NALOXONE HCL (KLOXXADO) 8 MG SPRAY NS PRN (16:30)
[2023-02-11] MEDS ORDERED: MAG HYDROX/AL HYDROX/SIMETH 30 ML UNIT-DOSE CUP PO PRN (16:30)
[2023-02-11] MEDS ORDERED: BENZONATATE 200 MG CAPSULE PO PRN (16:30)
[2023-02-11] MEDS ORDERED: IBUPROFEN 600 MG TABLET (FP) PO PRN (16:30)
[2023-02-11] MEDS ORDERED: DICYCLOMINE HCL 10 MG CAPSULE PO PRN (16:30)
[2023-02-11] MEDS ORDERED: NALOXONE HCL 0.4 MG/ML VIAL IM PRN (16:30)
[2023-02-11] MEDS ORDERED: BENZOCAINE/MENTHOL (CHLORASEPTIC ) LOZENGE MM PRN (16:30)
[2023-02-11] MEDS ORDERED: guaiFENesin 600 MG TABLET.ER (FP) PO PRN (16:30)
[2023-02-11] MEDS ORDERED: NICOTINE 10 MG CARTRIDGE (INHALER) IH PRN (16:30)
[2023-02-11] MEDS ORDERED: BISMUTH SUBSALICYLATE 524 MG/30 ML PO PRN (16:30)
[2023-02-11] MEDS ORDERED: IBUPROFEN 400 MG TABLET (FP) PO PRN (16:30)
[2023-02-11] MEDS ORDERED: ACETAMINOPHEN 325 MG TABLET (FP) PO PRN (16:30)
[2023-02-11] MEDS ORDERED: LOPERAMIDE HCL 2 MG CAPSULE PO PRN (16:30)
[2023-02-11] MEDS: diazePAM 5 MG TABLET PO SCH ×2 (17:48→22:26)
[2023-02-11] MEDS: THIAMINE HCL 100 MG TABLET (FP) PO SCH (22:26)
[2023-02-11] MEDS: MELATONIN 5 MG TABLETS PO SCH (22:26)
[2023-02-12] MEDS: diazePAM 5 MG TABLET PO SCH ×4 (05:45→22:59)
[2023-02-12] MEDS: PRENATAL VITAMINS W/ FOLIC ACID TABLET (FP) PO SCH (10:39)
[2023-02-12 11:15] LABS: HEMATOCRIT 41.5 % (35.4-49); MCH 28.3 pg (25.7-33.7); MCHC 33.9 g/dl (32.0-35.9); MEAN CELL VOLUME 83.5 fl (80-96); PLATELET COUNT 248 10^3/uL (134-434); RBC 4.96 M/mm3 (4.00-5.60); RDW 14.7 % (11.9-15.9); WHITE BLOOD COUNT 6.5 K/mm3 (4.0-10.0)
[2023-02-12 11:20] LABS: CALCIUM 9.8 mg/dL (8.5-10.1)
[2023-02-12 11:21] LABS: ALBUMIN 3.9 g/dl (3.4-5.0); BLOOD UREA NITROGEN 7.5 mg/dL (7-18)
[2023-02-12 11:24] LABS: CREATININE 0.9 mg/dL (0.55-1.3)
[2023-02-12 11:25] LABS: TOT PROT 7.9 g/dl (6.4-8.2)
[2023-02-12] MEDS: diazePAM 5 MG TABLET PO PRN ×2 (15:13→19:56)
[2023-02-12] MEDS: cloNIDine HCL 0.1 MG TABLET PO PRN (17:29)
[2023-02-12] MEDS: THIAMINE HCL 100 MG TABLET (FP) PO SCH (22:59)
[2023-02-12] MEDS: MELATONIN 5 MG TABLETS PO SCH (23:00)
[2023-02-13] MEDS: diazePAM 5 MG TABLET PO SCH ×3 (05:41→22:32)
[2023-02-13] MEDS ORDERED: methaDONE HCL 10 MG TABLET (FOR DETOX USE ONLY) PO ONE (10:00)
[2023-02-13] MEDS: PRENATAL VITAMINS W/ FOLIC ACID TABLET (FP) PO SCH (10:33)
[2023-02-13] MEDS: diazePAM 5 MG TABLET PO PRN ×2 (10:34→16:05)
[2023-02-13] MEDS: METHOCARBAMOL 500 MG TABLET PO PRN (13:03)
[2023-02-13] MEDS: cloNIDine HCL 0.1 MG TABLET PO PRN (15:04)
[2023-02-13] MEDS: MELATONIN 5 MG TABLETS PO SCH (22:31)
[2023-02-13] MEDS: THIAMINE HCL 100 MG TABLET (FP) PO SCH (22:32)
[2023-02-14] MEDS: diazePAM 5 MG TABLET PO PRN ×3 (02:42→12:47)
[2023-02-14] MEDS: diazePAM 5 MG TABLET PO SCH ×2 (05:58→17:42)
[2023-02-14] MEDS: PRENATAL VITAMINS W/ FOLIC ACID TABLET (FP) PO SCH (11:00)
[2023-02-14] MEDS: MELATONIN 5 MG TABLETS PO SCH (22:33)
[2023-02-14] MEDS: THIAMINE HCL 100 MG TABLET (FP) PO SCH (22:33)
[2023-02-14] MEDS: METHOCARBAMOL 500 MG TABLET PO PRN (22:36)
[2023-02-15] MEDS ORDERED: diazePAM 5 MG TABLET PO ONE (06:00)
[2023-02-15] MEDS ORDERED: methaDONE HCL 10 MG TABLET (FOR DETOX USE ONLY) PO ONE (10:00)
[2023-02-15] MEDS: PRENATAL VITAMINS W/ FOLIC ACID TABLET (FP) PO SCH (10:51)
[2023-02-15] MEDS: METHOCARBAMOL 500 MG TABLET PO PRN ×2 (10:53→21:24)
[2023-02-15] MEDS: THIAMINE HCL 100 MG TABLET (FP) PO SCH (21:24)
[2023-02-15] MEDS: MELATONIN 5 MG TABLETS PO SCH (21:24)
[2023-02-16] MEDS: METHOCARBAMOL 500 MG TABLET PO PRN (06:04)
[2023-02-16] MEDS: PRENATAL VITAMINS W/ FOLIC ACID TABLET (FP) PO SCH (10:19)
[2023-02-16 12:47] VITALS: BP 145/55; PULSE 114; RESP 18; TEMP 96.4
== END 2023-02-16 14:02 | disposition home or self-care (01) | DRG 773 ==
LOC: YASAS 14:25 → UNDOADMIN 15:13 → Y3N 15:13
PROVIDERS: ADMIT Allergy & Immunology; ATTEND Surgery
PROC: HZ2ZZZZ Detoxification Services for Substance Abuse Treatment (ICD-10-PCS; principal; 2023-02-11)
DX: F11.23 Opioid dependence with withdrawal (principal); F13.230 Sedative, hypnotic or anxiolytic dependence with withdrawal, uncomplicated; F10.10 Alcohol abuse, uncomplicated; F17.210 Nicotine dependence, cigarettes, uncomplicated; U07.1 COVID-19; Z59.00 Homelessness unspecified
CPT/HCPCS: 36415; 80053; 85027; 86780; 93005; 93010; C9803-CS; U0003; U0005